=== PATIENT | male | born 1965 | race Caucasian/White ===

== ENCOUNTER 2017-06-10 20:10 | Observation (INO) | payer BC, OTHER ==
[2017-06-10] MEDS ORDERED: Nitroglycerin 2% Oint 1 GM UD Packet TOP ONE (20:18)
--- NOTE | 2017-06-10 20:28 | EDM.PDOC ---
ED HPI GENERAL MEDICAL PROBLEM - General Chief Complaint: Chest Pain Stated Complaint: CHEST PRESSURE Time Seen by Provider: 06/10/17 20:10 Source of Information: Reports: Patient, EMS History Limitations: Reports: No Limitations - History of Present Illness INITIAL COMMENTS - FREE TEXT/NARRATIVE: 52 YO WM presents to ER complaining of substernal chest pain on and off x 1 week. Pt reports he was in physical therapy today and had an elevated bp- 200/ 100's. Pt reports tonight his called EMS because he continues to have chest pain. Pt reports associated shortness of breath, nausea, dizziness and diaphoresis. Pt reports pain into shoulder but also states he had left rotator cuff repair 12/2016. Duration: Week(s): (1) Location: Reports: Chest Quality: Reports: Ache Severity: Mild Improves with: Reports: None Worsens with: Reports: None Associated Symptoms: Reports: Chest Pain, Diaphoresis, Nausea/Vomiting, Shortness of Breath. Denies: Cough, Fever/Chills Treatments MAIL ORDER BILLER: Reports: Aspirin, Nitroglycerin - Related Data Allergies Allergy/AdvReac Type Severity Reaction Status Date / Time bee venom protein (honey bee) Allergy Anaphylactic Verified 06/10/17 20:18 Shock Home Meds: Home Meds Allopurinol [Zyloprim] 100 mg PO DAILY 06/10/17 [History] Cefuroxime Axetil [Cefuroxime] 250 mg PO BID 06/10/17 [History] Escitalopram Oxalate [Escitalopram Oxalate] 20 mg PO DAILY 06/10/17 [History] Losartan [Cozaar] 100 mg PO DAILY 06/10/17 [History] Metoprolol Succinate [Metoprolol Succinate] 50 mg PO DAILY 06/10/17 [History] ED ROS GENERAL - Review of Systems Review Of Systems: See Below Constitutional: Reports: No Symptoms HEENT: Reports: No Symptoms Respiratory: Reports: Shortness of Breath Cardiovascular: Reports: Chest Pain, Blood Pressure Problem, Lightheadedness Endocrine: Reports: No Symptoms GI/Abdominal: Reports: Nausea : Reports: No Symptoms Musculoskeletal: Reports: No Symptoms Skin: Reports: No Symptoms Neurological: Reports: No Symptoms Psychiatric: Reports: No Symptoms Hematologic/Lymphatic: Reports: No Symptoms Immunologic: Reports: No Symptoms ED EXAM, GENERAL - Physical Exam Exam: See Below Exam Limited By: No Limitations General Appearance: Alert, WD/WN, No Apparent Distress Nose: Normal Inspection, Normal Mucosa, No Blood Throat/Mouth: Normal Inspection, Normal Lips, Normal Teeth, Normal Gums, Normal Oropharynx, Normal Voice, No Airway Compromise Head: Atraumatic, Normocephalic Neck: Normal Inspection, Supple, Non-Tender, Full Range of Motion Respiratory/Chest: No Respiratory Distress, Lungs Clear, Normal Breath Sounds, No Accessory Muscle Use, Chest Non-Tender Cardiovascular: Normal Peripheral Pulses, Regular Rate, Rhythm, No Edema, No Gallop, No JVD, No Murmur, No Rub GI/Abdominal: Normal Bowel Sounds, Soft, Non-Tender, No Organomegaly, No Distention, No Abnormal Bruit, No Mass Back Exam: Normal Inspection, Full Range of Motion, NT Extremities: Normal Inspection, Normal Range of Motion, Non-Tender, Normal Capillary Refill, No Pedal Edema Neurological: Alert, Oriented, CN II-XII Intact, Normal Cognition, Normal Gait, Normal Reflexes, No Motor/Sensory Deficits Psychiatric: Normal Affect, Normal Mood Skin Exam: Warm, Dry, Intact, Normal Color, No Rash Lymphatic: No Adenopathy EKG INTERPRETATION EKG Date: 06/10/17 Time: 20:21 Rhythm: NSR Rate (Beats/Min): 67 [place]: Normal P-Wave: Present QRS: RBBB ST-T: Normal QT: Normal Comparison: NA - No Prior EKG Course - Vital Signs Last Recorded V/S: Last Vital Signs Temp 36.5 C 06/10/17 20:26 Pulse 72 06/10/17 20:41 Resp 17 06/10/17 20:41 BP 131/83 06/10/17 20:41 Pulse Ox 100 06/10/17 20:41 - Orders/Labs/Meds Orders: Active Orders 24 hr Category Date Time Status Cardiac Monitoring [RC] . DIRECTED Care 06/10/17 20:19 Ordered EKG Documentation Completion [RC] ASDIRECTED Care 06/10/17 20:19 Ordered Oxygen Therapy Adult [Oxygen Therapy, ED] [RC] Care 06/10/17 20:19 Ordered ASDIRECTED Chest 1V Frontal [CR] Stat Exams 06/10/17 20:18 Ordered EKG 12 Lead [EK] Routine Ther 06/10/17 20:18 Ordered Labs: Laboratory Tests 01/17/18 01/17/18 01/17/18 Range/Units 20:28 20:28 20:28 WBC 7.5 (5.0-10.0) 10^3/uL RBC 4.86 (4.50-6.00) 10^6/uL Hgb 13.6 (13.0-17.0) g/dL Hct 43.7 (40.0-52.0) % MCV 89.9 (82.0-92.0) fL MCH 28.0 (27.0-31.0) pg MCHC 31.2 L (32.0-36.0) g/dL RDW 12.9 (11.5-14.5) % Plt Count 323 H (150-300) 10^3/uL MPV 7.4 (7.4-10.4) fL Neut % (Auto) 59.7 (50.0-70.0) % Lymph % (Auto) 31.1 (20.0-40.0) % Giles % (Auto) 7.3 (2.0-8.0) % Eos % (Auto) 1.9 (1.0-3.0) % Baso % (Auto) 0.0 (0.0-1.0) % Neut # (Auto) 4.6 (2.5-7.0) 10^3/uL Lymph # (Auto) 2.3 (1.0-4.0) 10^3/uL Giles # (Auto) 0.5 (0.1-0.8) 10^3/uL Eos # (Auto) 0.1 (0.1-0.3) 10^3/uL Baso # (Auto) 0.0 (0.0-0.1) 10^3/uL PT 9.5 (8.9-11.4) SEC INR 0.9 (0.9-1.1) APTT 23.6 (20.8-31.2) SEC Sodium 134 L (136-145) mmol/L Potassium 4.7 (3.3-5.3) mmol/L Chloride 99 (98-115) mmol/L Carbon Dioxide 22.9 (21.0-32.0) mmol/L BUN 13 (6-25) mg/dL Creatinine 0.91 (0.51-1.17) mg/dL Est Cr Clr Drug Dosing 101.14 mL/min Estimated GFR (MDRD) > 60 mL/min Glucose 131 H (70-110) mg/dL Calcium 8.7 (8.7-10.3) mg/dL Total Bilirubin 0.2 (0.2-1.0) mg/dL AST 31 (15-37) U/L ALT 49 (12-78) U/L Alkaline Phosphatase 102 (46-116) IU/L Creatine Kinase 52 (26-276) U/L CK-MB (CK-2) < 0.50 (0.00-4.30) ng/mL Troponin I < 0.04 (0.00-0.070) ng/mL Total Protein 7.2 (6.4-8.2) g/dL Albumin 3.55 (3.00-4.80) g/dL Meds: Medications Discontinued Medications Generic Name Dose Route Start Last Admin Trade Name Freq PRN Reason Stop Dose Admin Nitroglycerin 1 gm 06/10/17 20:18 06/10/17 20:40 Nitro-Bid 2% TOP 06/10/17 20:19 1 gm ONETIME ONE Administration - Radiology Interpretation Free Text/Narrative:: CXR- NAD Departure - Departure Time of Disposition: 21:21 Disposition: Refer to Observation Condition: Fair Clinical Impression: Chest pain Qualifiers: Chest pain type: unspecified Qualified Code(s): R07.9 - Chest pain, unspecified - My Orders Last 24 Hours: My Active Orders 06/10/17 20:18 Chest 1V Frontal [CR] Stat EKG 12 Lead [EK] Routine 06/10/17 20:19 Cardiac Monitoring [RC] . DIRECTED EKG Documentation Completion [RC] ASDIRECTED Oxygen Therapy Adult [Oxygen Therapy, ED] [RC] ASDIRECTED - Assessment/Plan Last 24 Hours: My Active Orders 06/10/17 20:18 Chest 1V Frontal [CR] Stat EKG 12 Lead [EK] Routine 06/10/17 20:19 Cardiac Monitoring [RC] . DIRECTED EKG Documentation Completion [RC] ASDIRECTED Oxygen Therapy Adult [Oxygen Therapy, ED] [RC] ASDIRECTED Assessment:: 1. Chest Pain Plan: 1. admit to Dr Rubio- 23 hour obs 2. trop I Q6 x 3 3. nitro/asa/oxygen/supportive care
[2017-06-10 21:04] LABS: CHLORIDE,CL 99 mmol/L (98-115); SODIUM,NA 134 mmol/L (136-145)
[2017-06-10] MEDS ORDERED: Morphine 2 MG/ML Syringe IVPUSH PRN (21:17)
[2017-06-10] MEDS ORDERED: Sodium Chloride 0.9% 5 ML Syringe FLUSH PRN (21:17)
[2017-06-10] MEDS: Famotidine 20 MG Tab PO SCH (22:09)
[2017-06-10] MEDS: Ibuprofen 400 MG Tab PO PRN (22:09)
[2017-06-11] MEDS: Nitroglycerin 2% Oint 1 GM UD Packet TOP SCH ×2 (04:11→08:12)
[2017-06-11] MEDS: Escitalopram 10 MG Tab PO SCH (08:04)
[2017-06-11] MEDS: Famotidine 20 MG Tab PO SCH ×2 (08:04→20:45)
[2017-06-11] MEDS: Losartan 50 MG Tab PO SCH (08:05)
[2017-06-11] MEDS: Allopurinol 100 MG Tab PO SCH (08:05)
[2017-06-11] MEDS: Metoprolol Succinate 50 MG Tab.ER PO SCH (08:05)
[2017-06-11] MEDS: Ibuprofen 400 MG Tab PO PRN (08:08)
[2017-06-11] MEDS ORDERED: Nitroglycerin 0.4 MG Tab.SL SL PRN (08:32)
[2017-06-11] MEDS ORDERED: EPINEPHrine 1:10,000 1 MG/10 ML Syringe IVPUSH PRN (08:32)
[2017-06-11] MEDS ORDERED: Lidocaine 2% 100 MG/5 ML Syringe IVPUSH PRN (08:32)
[2017-06-11] MEDS ORDERED: Atropine 0.1 MG/ML 10 ML Syringe IVPUSH PRN (08:32)
[2017-06-11 08:34] LABS: CHLORIDE,CL 104 mmol/L (98-115); SODIUM,NA 140 mmol/L (136-145)
--- NOTE | 2017-06-11 09:40 | PCM.HP ---
H&P History of Present Illness - General Date of Service: 06/11/17 Source of Information: Patient, Old Records, RN History Limitations: Reports: No Limitations - History of Present Illness Initial Comments - Free Text/Narative: This 52 -year-old obese gentleman was admitted through the ED last night into observation due to chest pain and rule out HI. although the patient has stated he did have substernal chest pain transiently for a week it was when he was in PT yesterday and they noticed elevation of blood pressure. EPIC/EMR records indicate high BPs over the past week as high as 178/110 however yesterday he stated his blood pressure was 168/122 came down slightly to 148/102. ambulance was notified when he started having chest pains at home while watching TV. He described his chest pain 02/01 substernal non-radiating felt like someone was "sitting on my chest" with accompanying nausea, shortness of breath and diaphoresis with worsening of headaches that he had had for the past few days. He stated he was given nitroglycerin in the ambulance it did relieve his pain within 5 minutes down to a 6/10. he's been having ongoing pain in his left shoulder after he is status post rotator cuff repair 12/2016. He is due for an MRI today at [facility] routinely. he also had routine appointments tomorrow with [facility] to regulate blood pressure medicine. he has been on antibiotics due for URI. Headache Pain Score (Numeric/FACES): 5 - Related Data Allergies/Adverse Reactions: Allergies Allergy/AdvReac Type Severity Reaction Status Date / Time bee venom protein (honey bee) Allergy Anaphylactic Verified 06/11/17 04:24 Shock Home Medications: Home Meds Allopurinol [Zyloprim] 100 mg PO DAILY 06/10/17 [History] Cefuroxime Axetil [Cefuroxime] 250 mg PO BID 06/10/17 [History] Escitalopram Oxalate [Escitalopram Oxalate] 20 mg PO DAILY 06/10/17 [History] Losartan [Cozaar] 100 mg PO DAILY 06/10/17 [History] Metoprolol Succinate [Metoprolol Succinate] 50 mg PO DAILY 06/10/17 [History] Escitalopram Oxalate [Escitalopram Oxalate] 20 mg PO DAILY 06/11/17 [History] Hydrochlorothiazide [Hydrochlorothiazide] 12.5 mg PO DAILY 06/11/17 [History] Ibuprofen 800 mg PO TID PRN 06/11/17 [History] atorvaSTATin Calcium [Atorvastatin Calcium] 10 mg PO DAILY 06/11/17 [History] Past Medical History HEENT History: Reports: Other (See Below) Other HEENT History: glasses Cardiovascular History: Reports: High Cholesterol, Hypertension Musculoskeletal History: Reports: Arthritis, Other (See Below) Other Musculoskeletal History: L shoulder Neurological History: Reports: None Psychiatric History: Reports: Anxiety, Depression, Mood Swings, Panic Attack - Infectious Disease History Infectious Disease History: Reports: None - Past Surgical History Cardiovascular Surgical History: Reports: None GI Surgical History: Reports: Bariatric Procedure, Colonoscopy, Hernia, Abdominal, Other (See Below) Other GI Surgeries/Procedures: gastric bypass 2011 Musculoskeletal Surgical History: Reports: Other (See Below) Other Musculoskeletal Surgeries/Procedures:: L rotator cuff repaid 01/22/2017 laparoscopic. neck surgery for C5 and C 6 with plate and 2 screws Social & Family History - Family History HEENT: Reports: None Cardiac: Reports: Hypertension, HI (father HI at age 58, he also had hypertension) Other Cardiac Family History: mother also with hypertension, diabetes, macular degeneration along with cataract Respiratory: Reports: None GI: Reports: None : Reports: None OBGYN: Reports: None Musculoskeletal: Reports: None Neurological: Reports: None Psychiatric: Reports: None Endocrine/Metabolic: Reports: None Hematologic: Reports: None Immunologic: Reports: None Dermatologic: Reports: None Oncologic: Reports: None - Tobacco Use Smoking Status *Q: Never Smoker - Caffeine Use Caffeine Use: Reports: Coffee, Soda - Alcohol Use Days Per Week of Alcohol Use: 6 Number of Drinks Per Day: 5 Total Drinks Per Week: 30 Date of Last Drink: 06/10/17 Time of Last Drink: 18:00 - Recreational Drug Use Recreational Drug Use: No H&P Review of Systems - Review of Systems: Review Of Systems: See Below General: Reports: Diaphoresis. Denies: Fever, Chills, Night Sweats HEENT: Reports: No Symptoms Pulmonary: Denies: Shortness of Breath, Pleuritic Chest Pain, Cough, Sputum Cardiovascular: Reports: Blood Pressure Problem. Denies: Chest Pain, Palpitations, Dyspnea on Exertion, Orthopnea, PND, Edema Gastrointestinal: Reports: Nausea Genitourinary: Reports: No Symptoms Musculoskeletal: Reports: Shoulder Pain Skin: Reports: No Symptoms Psychiatric: Reports: Depression, Anxiety Neurological: Reports: No Symptoms Hematologic/Lymphatic: Reports: No Symptoms Immunologic: Reports: No Symptoms Exam - Exam Exam: See Below - Vital Signs Vital Signs: Last Vital Signs Temp 97.8 F 06/11/17 06:35 Pulse 73 06/11/17 08:05 Resp 18 06/11/17 06:35 BP 140/89 06/11/17 08:05 Pulse Ox 97 06/11/17 08:20 Weight: 278 lb - Exam Quality Assessment: No: Supplemental Oxygen General: Alert, Oriented, Cooperative HEENT: Hearing Intact, Mucosa Moist & Griffin, Normal Nasal Septum, Posterior Pharynx Clear, Pupils Equal Neck: Supple, Trachea Midline, 2 Lungs: Clear to Auscultation, Normal Respiratory Effort Cardiovascular: Regular Rate, Regular Rhythm, Normal S1, Normal S2. No: Gallop/ S3, Gallop/S4 GI/Abdominal Exam: Normal Bowel Sounds, Soft, Non-Tender, No Organomegaly, No Distention, No Abnormal Bruit, No Mass, Pelvis Stable (Male) Exam: Deferred Rectal (Males) Exam: Deferred Back Exam: No: CVA Tenderness (L), CVA Tenderness (R) Peripheral Pulses: 2+: Carotid (L) (negative bruit), Carotid (R) (negative bruit ), Radial (L), Radial (R) Skin: Moist, Other (slightly diaphoretic) Neurological: Cranial Nerves Intact, Normal Speech Neuro Extensive - Mental Status: Alert, Oriented x3, Normal Mood/Affect, Normal Cognition Neuro Extensive - Motor, Sensory, Reflexes: CN II-XII Intact, Normal Gait, Normal Reflexes Psychiatric: Alert, Normal Affect, Normal Mood - Patient Data Lab Results Last 24 hrs: Laboratory Results - last 24 hr 06/11/17 06/11/17 Range/Units 07:35 07:35 WBC 5.4 (5.0-10.0) 10^3/uL RBC 4.77 (4.50-6.00) 10^6/uL Hgb 13.7 (13.0-17.0) g/dL Hct 40.9 (40.0-52.0) % MCV 85.7 (82.0-92.0) fL MCH 28.6 (27.0-31.0) pg MCHC 33.4 (32.0-36.0) g/dL RDW 12.9 (11.5-14.5) % Plt Count 277 (150-300) 10^3/uL MPV 6.5 L (7.4-10.4) fL Neut % (Auto) 56.0 (50.0-70.0) % Lymph % (Auto) 28.8 (20.0-40.0) % Ward % (Auto) 10.6 H (2.0-8.0) % Eos % (Auto) 1.6 (1.0-3.0) % Baso % (Auto) 3.0 H (0.0-1.0) % Neut # (Auto) 2.9 (2.5-7.0) 10^3/uL Lymph # (Auto) 1.6 (1.0-4.0) 10^3/uL Ward # (Auto) 0.6 (0.1-0.8) 10^3/uL Eos # (Auto) 0.1 (0.1-0.3) 10^3/uL Baso # (Auto) 0.2 H (0.0-0.1) 10^3/uL Sodium 140 (136-145) mmol/L Potassium 4.4 (3.3-5.3) mmol/L Chloride 104 (98-115) mmol/L Carbon Dioxide 22.6 (21.0-32.0) mmol/L BUN 10 (6-25) mg/dL Creatinine 0.93 (0.51-1.17) mg/dL Est Cr Clr Drug Dosing 98.96 mL/min Estimated GFR (MDRD) > 60 mL/min Glucose 101 (70-110) mg/dL Hemoglobin A1c 5.8 H (4.3-5.7) % Calcium 8.9 (8.7-10.3) mg/dL Magnesium 1.8 (1.8-2.4) mg/dL Troponin I < 0.04 (0.00-0.070) ng/mL Result Diagrams: 06/11/17 07:35 06/11/17 07:35 EKG INTERPRETATION Rhythm: NSR QRS: RBBB Comparison: No Change *Q Meaningful Use (ADM) - VTE *Q VTE Criteria *Q: - Stroke *Q Stroke Criteria *Q: - AMI *Q AMI Criteria *Q: Problem List Initiated/Reviewed/Updated: Yes Orders Last 24hrs: Active Orders 24 hr Category Date Time Status Allopurinol [Zyloprim] Med 06/11/17 09:00 Active 100 mg PO DAILY Atropine [Atropine 0.1 MG/ML] Med 06/11/17 08:32 Active 0 mg IVPUSH ASDIRECTED PRN EPINEPHrine [EPINEPHrine 1:10,000] Med 06/11/17 08:32 Active 1 mg IVPUSH ASDIRECTED PRN Escitalopram [Lexapro] Med 06/11/17 09:00 Active 20 mg PO DAILY Famotidine [Pepcid] Med 06/10/17 22:00 Active 20 mg PO BID Ibuprofen [Motrin] Med 06/10/17 21:57 Active 800 mg PO Q8H PRN Lidocaine 2% [Xylocaine 2%] Med 06/11/17 08:32 Active 0 mg IVPUSH ASDIRECTED PRN Losartan [Cozaar] Med 06/11/17 09:00 Active 100 mg PO DAILY Metoprolol Succinate [Toprol XL] Med 06/11/17 09:00 Active 50 mg PO DAILY Nitroglycerin [Nitro-Bid 2%] Med 06/11/17 03:00 Active 1 gm TOP Q6H Nitroglycerin [Nitrostat] Med 06/11/17 08:32 Active 0.4 mg SL ASDIRECTED PRN Medication Orders Allopurinol (Zyloprim) 100 mg PO DAILY [facility] Last Admin: 06/11/17 08:05 Dose: 100 mg Atropine Sulfate (Atropine 0.1 Mg/Ml) 0 mg IVPUSH ASDIRECTED PRN PRN Reason: Heart Epinephrine HCl (Epinephrine 1:10,000) 1 mg IVPUSH ASDIRECTED PRN PRN Reason: Heart Escitalopram Oxalate (Lexapro) 20 mg PO DAILY [facility] Last Admin: 06/11/17 08:04 Dose: 20 mg Famotidine (Pepcid) 20 mg PO BID [facility] Last Admin: 06/11/17 08:04 Dose: 20 mg Admin: 06/10/17 22:09 Dose: 20 mg Ibuprofen (Motrin) 800 mg PO Q8H PRN PRN Reason: Pain Last Admin: 06/11/17 08:08 Dose: 800 mg Admin: 06/10/17 22:09 Dose: 800 mg Lidocaine HCl (Xylocaine 2%) 0 mg IVPUSH ASDIRECTED PRN PRN Reason: Heart Losartan Potassium (Cozaar) 100 mg PO DAILY [facility] Last Admin: 06/11/17 08:05 Dose: 100 mg Metoprolol Succinate (Toprol Xl) 50 mg PO DAILY [facility] Last Admin: 06/11/17 08:05 Dose: 50 mg Morphine Sulfate (Morphine) 2 mg IVPUSH Q2H PRN PRN Reason: Pain (severe 7-10) Nitroglycerin (Nitro-Bid 2%) 1 gm TOP Q6H [facility] Last Admin: 06/11/17 08:12 Dose: Not Given Admin: 06/11/17 04:11 Dose: Nitroglycerin (Nitrostat) 0.4 mg SL ASDIRECTED PRN PRN Reason: Heart Sodium Chloride (Syrex Flush) 5 ml FLUSH Q8HR PRN PRN Reason: Keep Vein Open Assessment/Plan Comment:: HISTORY OF PRESENT ILLNESS This 52 -year-old obese gentleman was admitted through the ED last night into observation due to chest pain and rule out HI. although the patient has stated he did have substernal chest pain transiently for a week it was when he was in PT yesterday and they noticed elevation of blood pressure. EPIC/EMR records indicate high BPs over the past week as high as 178/110 however yesterday he stated his blood pressure was 168/122 came down slightly to 148/102. ambulance was notified when he started having chest pains at home while watching TV. He described his chest pain 9/10 substernal non-radiating felt like someone was "sitting on my chest" with accompanying nausea, shortness of breath and diaphoresis with worsening of headaches that he had had for the past few days. He stated he was given nitroglycerin in the ambulance it did relieve his pain within 5 minutes down to a 6/10. he's been having ongoing pain in his left shoulder after he is status post rotator cuff repair 12/2016. He is due for an MRI today at [facility] routinely. he also had routine appointments tomorrow with [place] provider to regulate blood pressure medicine. he has been on antibiotics due for URI. Cardiolite stress test November/2012, No significant perfusion abnormality. No evidence of ischemia. LVEF of 51% Mild left ventricular chamber dilatation. Pertinent ED workup included. EKG, NSR with right BBB (no change from previous EKG December 2016) Chest x-ray, no acute process, however cardiomegaly Negative troponin Cardiac risk factors Obesity Sedentary HTN/HLD Fam Hx father HI age 58 Stress Primary impression Angina, typical vs atypical, d/t to substernal chest discomfort, with characteristics quality/duration, provoked by stress and relieved somewhat by NTG. due to his high stress levels could be Prinzmetals. troponin normal. continue telemetry, will ambulate on halls today. Pharmacy consultation. Remove nitroglycerin. ASA. Pretest probability of CAD--intermediate HTN; wide ranges, pharmacological consultation on medication compliance. continue with ARB/BB/HCTZ CODE STATUS, full code Secondary impression HLD, on statin therapy, recent lipids drawn, however Cardiovascular risk assessment 10-year ACC/AHA--3% Obesity, BMI 37, morbid. Hx gastric bypass 10 years ago. modifiable risk factor. Discussed with patient regarding strategy Hx Gout, allopurinol maintenance, frequent manifestations Depression/anxiety, with current significant life stressors, likely contributable, on Lexapro. MSK; lumbar DDD, lumbar stenosis, spinal stenosis rotator cuff, WC case, due to observation status patient may be able to receive previously scheduled MRI shoulder today. Overall plan, discharge planning/disposition, continue in observation telemetry. Ambulate aggressively on nursing floor today. monitor BP, telemetry, Ongoing education regarding modifiable risk factor reduction. May be able to get MRI of shoulder while in observation, anticipate discharge tomorrow however patient will undergo stress testing.
[2017-06-11] MEDS ORDERED: Ibuprofen 200 MG Tab PO PRN ×2 (10:21→16:00)
[2017-06-11] MEDS: atorvaSTATin 10 MG Tab PO SCH (10:53)
[2017-06-11] MEDS ORDERED: Hydrochlorothiazide 25 MG Tab PO SCH (11:00)
[2017-06-11] MEDS ORDERED: Hydrochlorothiazide 12.5 MG Cap PO SCH (13:38)
[2017-06-12] MEDS: Allopurinol 100 MG Tab PO SCH (08:17)
[2017-06-12] MEDS: Losartan 50 MG Tab PO SCH (08:17)
[2017-06-12] MEDS: atorvaSTATin 10 MG Tab PO SCH (08:17)
[2017-06-12] MEDS: Metoprolol Succinate 50 MG Tab.ER PO SCH (08:17)
[2017-06-12] MEDS: Famotidine 20 MG Tab PO SCH (08:17)
[2017-06-12] MEDS: Escitalopram 10 MG Tab PO SCH (08:18)
--- NOTE | 2017-06-13 02:12 | DISCH ---
FINAL DIAGNOSES: 1. Angina, likely Prinzmetal's angina. 2. Hypertension. 3. Obesity. 4. Hyperlipidemia. 5. History of gout. 6. Depression and anxiety. HISTORY: A 52-year-old gentleman was admitted to the ED into observation due to chest pain and rule out myocardial infarction, although the patient stated he did have substernal chest pain transiently for about a week. It was when he was in PT the day prior to admission when he noticed that he had significant elevation of his blood pressure. Records indicated he has high as 178/110 a few days prior to this. It was slightly improved in PT of 168/122 and then came down to 148/102. However, it was at night when he was sitting watching TV at home when he started having chest pain 9/10, substernal, nonradiating, felt like someone was "sitting on his chest." He did have some accompany nausea, some shortness of breath, diaphoresis, worsening headache that he has had for the past few days. He does contribute his headache to excessive caffeine and Mountain Dew. He was given nitroglycerin in the ambulance. It did relieve his pain from a 9 down to a 6/10 almost immediately. He does have ongoing left shoulder pathology and pain due to status post rotator cuff repair in 12/2016. He is due for an MRI in about a week at [facility]. Cardiac stress test in 11/2012, showed no significant perfusion abnormality. No evidence of ischemia. Left ventricular ejection fraction was 51% which was normal. He did have some mild left ventricular chamber dilatation. Next, per the ED workup included EKGs, normal sinus rhythm with right BBB. No change from previous EKG of 2016. Chest x-ray on admission showed no acute process other than some cardiomegaly. Negative troponins. The patient does have significant risk factors including obesity, sedentary, hyperlipidemia, hypertension. Family history with his dad of an ID at age 58 and stress. HOSPITAL COURSE: Hospital course went well. His blood pressure was normalized. He did have some lows and some mild borderline highs, however, that was due to ambulatory around the hospital. We did keep him on telemetry. He had no aberrancy. He had normal sinus rhythm. He did not have any chest pain either reproducible or nonreproducible while in the hospital. No shortness of breath. He slept well. His headache did go away. LABORATORY DATA: White count on admission and discharge was normal. No hematological concerns. INR 0.9. Sodium 140, potassium 4.4. BUN, creatinine, calcium, magnesium, AST, ALT, alkaline phosphatase, CK, troponins were all normal. We trended his troponin and CK they were normal. PHYSICAL EXAM ON DISCHARGE: VITAL SIGNS: Temperature 97.9, heart rate 64 and regular, blood pressure 118/72, O2 sats 97% on room air, respiratory rate 16. LUNGS: Clear to auscultation. CV: Regular rate. PMI second intercostal space, midclavicular line. S1 and S2 are normal. No pedal edema. Negative for any carotid bruit. MEDICATIONS: Aspirin 81 mg enteric-coated (newly added), the patient can continue on all other home medications; however, discontinue ibuprofen, place him on Aleve for his shoulder pain. Nitroglycerin 0.4 mg sublingual as directed as needed for chest pain (newly added). DISPOSITION: The patient will be discharged from observation. He will follow up with myself at [facility] next week. He is to report any chest pain immediately. Recommendations that follow up. Schedule the patient for Cardiolite stress test. The patient was given DASH diet upon discharge. Long education regarding reducing modifiable risk factors. /[id number]
== END 2017-06-12 10:50 | disposition home or self-care (01) ==
LOC: KA.ED 20:10 → KA.MS 21:17
PROVIDERS: ADMIT Physician Assistant Medical; ATTEND Family Medicine
DX: I20.9 Angina pectoris, unspecified (principal); I10 Essential (primary) hypertension; E78.5 Hyperlipidemia, unspecified; M10.9 Gout, unspecified; F32.9 Major depressive disorder, single episode, unspecified; F41.9 Anxiety disorder, unspecified; M25.512 Pain in left shoulder; E78.00 Pure hypercholesterolemia, unspecified; M19.90 Unspecified osteoarthritis, unspecified site; F41.0 Panic disorder [episodic paroxysmal anxiety]; F34.89 Other specified persistent mood disorders; M51.36 Other intervertebral disc degeneration, lumbar region; M48.061 Spinal stenosis, lumbar region without neurogenic claudication; E66.01 Morbid (severe) obesity due to excess calories; Z68.37 Body mass index [BMI] 37.0-37.9, adult; Z79.82 Long term (current) use of aspirin; Z79.899 Other long term (current) drug therapy; Z91.030 Bee allergy status; Z83.3 Family history of diabetes mellitus; Z82.49 Family history of ischemic heart disease and other diseases of the circulatory system; Z98.84 Bariatric surgery status; Z98.890 Other specified postprocedural states
CPT/HCPCS: 36415; 71045; 80048; 80053; 82550; 82553; 83036; 83735; 84484; 85025; 85610; 85730; 93005; 99285; A9270; G0378

== ENCOUNTER 2018-08-09 22:08 | Emergency (ER) | payer BC ==
--- NOTE | 2018-08-09 22:47 | EDM.PDOC ---
ED HPI GENERAL MEDICAL PROBLEM - General Chief Complaint: Lower Extremity Injury/Pain Stated Complaint: s/p fall Time Seen by Provider: 08/09/18 22:39 Source of Information: Reports: Patient, EMS History Limitations: Reports: No Limitations - History of Present Illness INITIAL COMMENTS - FREE TEXT/NARRATIVE: 53 YO WM presents to ER after slip and fall outside while taking out trush. Pt landed on his right hip and complains of localized right hip pain. Pt denies any head or neck injury from fall. Pt denies any loss of consciousness. Pt was able to stand with assistance and was able to get into the house with his sons help. Pt denies any back pain, chest pain, shortness of breath or dizziness. Pt is alert and oriented x 4 with GCS-15. Onset: Today Onset Time: 20:30 Location: Reports: Lower Extremity, Right Quality: Reports: Ache Severity: Moderate Improves with: Reports: Rest Worsens with: Reports: Movement Associated Symptoms: Reports: No Other Symptoms - Related Data Allergies Allergy/AdvReac Type Severity Reaction Status Date / Time bee venom protein (honey bee) Allergy Anaphylactic Verified 08/09/18 22:38 Shock codeine Allergy Anxiety Verified 08/09/18 22:38 Home Meds: Home Meds Allopurinol [Zyloprim] 100 mg PO DAILY 06/10/17 [History] Losartan [Cozaar] 100 mg PO DAILY 06/10/17 [History] Metoprolol Succinate 50 mg PO DAILY 06/10/17 [History] Escitalopram Oxalate 20 mg PO DAILY 06/11/17 [History] atorvaSTATin Calcium [Atorvastatin Calcium] 10 mg PO DAILY 06/11/17 [History] hydroCHLOROthiazide [Hydrochlorothiazide] 25 mg PO DAILY 06/11/17 [History] Aspirin [Halfprin] 81 mg PO DAILY #90 tab.ec 06/12/17 [Rx] miSOPROStol [Cytotec] 25 mg PO BID 01/18/18 [History] Hydrocodone/Acetaminophen [Hydrocodon-Acetaminophn 10-325] 1 each PO Q6HR PRN # 10 tablet 08/09/18 [Rx] Ibuprofen [Motrin] 800 mg PO TID #15 tablet 08/09/18 [Rx] Past Medical History HEENT History: Reports: Other (See Below) Other HEENT History: glasses Cardiovascular History: Reports: High Cholesterol, Hypertension, Other (See Below) Other Cardiovascular History: Know right bundle branch block (2016) Musculoskeletal History: Reports: Arthritis, Other (See Below) Other Musculoskeletal History: L shoulder Neurological History: Reports: None Psychiatric History: Reports: Anxiety, Depression, Mood Swings, Panic Attack - Infectious Disease History Infectious Disease History: Reports: None - Past Surgical History Cardiovascular Surgical History: Reports: None GI Surgical History: Reports: Appendectomy, Bariatric Procedure, Colonoscopy, Hernia, Abdominal, Other (See Below) Other GI Surgeries/Procedures: gastric bypass 2011 Musculoskeletal Surgical History: Reports: Other (See Below) Other Musculoskeletal Surgeries/Procedures:: L rotator cuff repaid 01/22/2017 laparoscopic. neck surgery for C5 and C 6 with plate and 2 screws Social & Family History - Family History HEENT: Reports: None Cardiac: Reports: Hypertension, [place] Other Cardiac Family History: mother also with hypertension, diabetes, macular degeneration along with cataract Respiratory: Reports: None GI: Reports: None : Reports: None OBGYN: Reports: None Musculoskeletal: Reports: None Neurological: Reports: None Psychiatric: Reports: None Endocrine/Metabolic: Reports: None Hematologic: Reports: None Immunologic: Reports: None Dermatologic: Reports: None Oncologic: Reports: None - Caffeine Use Caffeine Use: Reports: Soda Other Caffeine Use: 2 diet mountain dew per day Review of Systems - Review of Systems Review Of Systems: See Below Constitutional: Reports: No Symptoms Eyes: Reports: No Symptoms Ears: Reports: No Symptoms Nose: Reports: No Symptoms Mouth/Throat: Reports: No Symptoms Respiratory: Reports: No Symptoms Cardiovascular: Reports: No Symptoms GI/Abdominal: Reports: No Symptoms Genitourinary: Reports: No Symptoms Musculoskeletal: Reports: Leg Pain. Denies: Neck Pain, Arm Pain, Back Pain Skin: Reports: No Symptoms Neurological: Reports: No Symptoms Psychiatric: Reports: No Symptoms ED EXAM, GENERAL - Physical Exam Exam: See Below Exam Limited By: No Limitations General Appearance: Alert, WD/WN, No Apparent Distress Eye Exam: Bilateral Eye: EOMI, PERRL Nose: Normal Inspection, Normal Mucosa, No Blood Throat/Mouth: Normal Inspection, Normal Lips, Normal Teeth, Normal Gums, Normal Oropharynx, Normal Voice, No Airway Compromise Head: Atraumatic, Normocephalic Neck: Normal Inspection, Supple, Non-Tender, Full Range of Motion Respiratory/Chest: No Respiratory Distress, Lungs Clear, Normal Breath Sounds, No Accessory Muscle Use, Chest Non-Tender Cardiovascular: Normal Peripheral Pulses, Regular Rate, Rhythm, No Edema, No Gallop, No JVD, No Murmur, No Rub GI/Abdominal: Normal Bowel Sounds, Soft, Non-Tender, No Organomegaly, No Distention, No Abnormal Bruit, No Mass Back Exam: Normal Inspection, Full Range of Motion, Paraspinal Tenderness. No: Vertebral Tenderness Extremities: No Pedal Edema, Normal Capillary Refill, Leg Pain (tenderness over the right greater trochanter) Neurological: Alert, Oriented, CN II-XII Intact, Normal Cognition, Normal Gait, Normal Reflexes, No Motor/Sensory Deficits Psychiatric: Normal Affect, Normal Mood Skin Exam: Warm, Dry, Intact, Normal Color, No Rash Lymphatic: No Adenopathy Course - Orders/Labs/Meds Orders: Active Orders 24 hr Category Date Time Status Hip Min 2V or 3V Rt [CR] Stat Exams 08/09/18 22:10 Ordered Lumbar Spine 1V [CR] Stat Exams 08/09/18 22:12 Ordered Pelvis 1V or 2V [CR] Stat Exams 08/09/18 22:13 Ordered Meds: Medications Discontinued Medications Generic Name Dose Route Start Last Admin Trade Name Freq PRN Reason Stop Dose Admin Ketorolac Tromethamine 30 mg 08/09/18 23:04 08/09/18 23:14 Toradol IVPUSH 08/09/18 23:05 30 mg ONETIME ONE Administration - Radiology Interpretation Free Text/Narrative:: right hip- NAD pelvis- NAD lumbar spine- NAD Departure - Departure Time of Disposition: 23:37 Disposition: Home, Self-Care 01 Condition: Good Clinical Impression: Contusion of hip, right Qualifiers: Encounter type: initial encounter Qualified Code(s): S70.01XA - Contusion of right hip, initial encounter - Discharge Information Prescriptions: Hydrocodone/Acetaminophen [Hydrocodon-Acetaminophn 10-325] 1 each PO Q6HR PRN # 10 tablet PRN Reason: Pain Ibuprofen [Motrin] 800 mg PO TID #15 tablet Instructions: Crutch Use, Adult, [id number], Hip Pain, Contusion, Easy-to- Read Forms: ED Department Discharge Additional Instructions: 1. discharge home 2. hydrocodone 10/325 #10 si PO Q6 PRN pain 3. motrin 800mg PO TID x 5 days 4. follow up with PCP for further evaluation and treatment 5. 3 days off work 6. return to ER for worsening symptoms - My Orders Last 24 Hours: My Active Orders 08/09/18 22:10 Hip Min 2V or 3V Rt [CR] Stat 08/09/18 22:12 Lumbar Spine 1V [CR] Stat 08/09/18 22:13 Pelvis 1V or 2V [CR] Stat - Assessment/Plan Last 24 Hours: My Active Orders 08/09/18 22:10 Hip Min 2V or 3V Rt [CR] Stat 08/09/18 22:12 Lumbar Spine 1V [CR] Stat 08/09/18 22:13 Pelvis 1V or 2V [CR] Stat Assessment:: 1. right hip contusion 2. slip and fall on ice Plan: 1. discharge home 2. hydrocodone 10/325 #10 si PO Q6 PRN pain 3. motrin 800mg PO TID x 5 days 4. follow up with PCP for further evaluation and treatment 5. 3 days off work 6. return to ER for worsening symptoms
[2018-08-09] MEDS ORDERED: Ketorolac 30 MG/ML SDV IVPUSH ONE (23:04)
--- NOTE | 2018-08-10 08:15 | CR ---
[id number] RAD/RAD Hip Right 2-3V EXAM: 2 VIEWS RIGHT HIP. INDICATION: FALL COMPARISON: None. DISCUSSION: No fracture, dislocation or other acute osseous abnormality. Mild degenerative changes of the right hip. IMPRESSION: 1. No acute osseous abnormalities. Willian Toscano DO 08/10/18 0814 Thank you for allowing us to participate in the care of your patient.
--- NOTE | 2018-08-10 08:20 | CR ---
[id number] RAD/RAD Lumbar Spine 1V EXAM: AP AND LATERAL LUMBAR SPINE. INDICATION: Fall. COMPARISON: No previous similar exam is available for comparison. FINDINGS: No definite fracture or subluxation is seen. There are a few mild anterior wedge deformities involving the T12 and L1 vertebral bodies which are age indeterminate. No significant retropulsion. Advanced facet arthropathy at multiple levels. Additionally there are areas of disc space narrowing and osteophyte formation. The pedicles are intact. IMPRESSION: 1. NO DEFINITE ACUTE FRACTURE OR SUBLUXATION. 2. MULTILEVEL DEGENERATIVE CHANGES DESCRIBED ABOVE. 3. AGE-INDETERMINATE ANTERIOR WEDGE DEFORMITY OF THE T12 AND L1 VERTEBRAL BODIES. Willian Toscano DO 08/10/18 0819 Thank you for allowing us to participate in the care of your patient.
== END 2018-08-09 23:45 | disposition home or self-care (01) ==
LOC: KA.ED 22:08
DX: S70.01XA Contusion of right hip, initial encounter (principal); I10 Essential (primary) hypertension; F41.9 Anxiety disorder, unspecified; F32.9 Major depressive disorder, single episode, unspecified; Z79.82 Long term (current) use of aspirin; Z79.899 Other long term (current) drug therapy; Z98.84 Bariatric surgery status; Z90.49 Acquired absence of other specified parts of digestive tract; Z88.5 Allergy status to narcotic agent; Z91.030 Bee allergy status; W01.0XXA Fall on same level from slipping, tripping and stumbling without subsequent striking against object, initial encounter
CPT/HCPCS: 72020; 73502; 96374; 99284; J1885; 72170

== ENCOUNTER 2018-12-06 11:32 | Emergency (ER) | payer BC ==
--- NOTE | 2018-12-06 11:46 | EDM.PDOC ---
ED HPI GENERAL MEDICAL PROBLEM - General Chief Complaint: Neuro Symptoms/Deficits Stated Complaint: neuro symptoms Time Seen by Provider: 12/06/18 11:32 Source of Information: Reports: Patient History Limitations: Reports: No Limitations - History of Present Illness INITIAL COMMENTS - FREE TEXT/NARRATIVE: Patient presents with stroke concern. He has weakness and a "numb" feeling on right side. This is in arm and leg. Today when he stood up he felt very numb and weak and had trouble standing and speech was slurred, lasting about a minute ; he has had these episodes with standing up several times in last 4 days but not previous. He has arm and leg weakness that started 4 days ago and has been persistent. He has never had a stroke, AL, A Fib, stents or bypasses in the past. He doesn't routinely take aspirin due to a small GI bleed since his gastric bypass in 2009. Headache Pain Score (Numeric/FACES): 9 - Related Data Allergies Allergy/AdvReac Type Severity Reaction Status Date / Time bee venom protein (honey bee) Allergy Anaphylactic Verified 12/06/18 12:09 Shock codeine Allergy Anxiety Verified 12/06/18 12:09 Home Meds: Home Meds Allopurinol [Zyloprim] 100 mg PO DAILY 06/10/17 [History] Losartan [Cozaar] 100 mg PO DAILY 06/10/17 [History] Metoprolol Succinate 50 mg PO DAILY 06/10/17 [History] Escitalopram Oxalate 20 mg PO DAILY 06/11/17 [History] atorvaSTATin Calcium [Atorvastatin Calcium] 10 mg PO DAILY 06/11/17 [History] hydroCHLOROthiazide [Hydrochlorothiazide] 25 mg PO DAILY 06/11/17 [History] ALPRAZolam [Xanax] 0.25 mg PO TID PRN 08/09/18 [History] Cholecalciferol (Vitamin D3) [Vitamin D3] 4,000 unit PO DAILY 08/09/18 [History] Multivit with Iron,Minerals [Spectravite Senior] 1 tab PO DAILY 08/09/18 [ History] Omeprazole 40 mg PO DAILY 08/09/18 [History] Cyanocobalamin (Vitamin B-12) [Vitamin B-12] 5,000 mcg SL DAILY 12/06/18 [ History] Diclofenac Sodium [Voltaren] 1 tab PO BID 12/06/18 [History] EPINEPHrine [Epipen] 0.3 mg INJECT ASDIRECTED PRN 12/06/18 [History] Hydrocodone/Acetaminophen [[place] 5-325 Tablet] 1 tab PO Q6HR PRN 12/06/18 [ History] Iron Ag,Ps/C/Fa6/B12/Zn/SA/Sto [Niferex Tablet] 1 cap PO DAILY 12/06/18 [History ] Iron Polysaccharide Complex [Poly-Iron] 150 cap PO DAILY 12/06/18 [History] Past Medical History HEENT History: Reports: Other (See Below) Other HEENT History: glasses Cardiovascular History: Reports: High Cholesterol, Hypertension, Other (See Below) Other Cardiovascular History: Know right bundle branch block (2016) Musculoskeletal History: Reports: Arthritis, Other (See Below) Other Musculoskeletal History: L shoulder Neurological History: Reports: None Psychiatric History: Reports: Anxiety, Depression, Mood Swings, Panic Attack - Infectious Disease History Infectious Disease History: Reports: None - Past Surgical History Cardiovascular Surgical History: Reports: None GI Surgical History: Reports: Appendectomy, Bariatric Procedure, Colonoscopy, Hernia, Abdominal, Other (See Below) Other GI Surgeries/Procedures: gastric bypass 2011 Musculoskeletal Surgical History: Reports: Other (See Below) Other Musculoskeletal Surgeries/Procedures:: L rotator cuff repaid 01/22/2017 laparoscopic. neck surgery for C5 and C 6 with plate and 2 screws Social & Family History - Family History HEENT: Reports: None Cardiac: Reports: Hypertension, [place] Other Cardiac Family History: mother also with hypertension, diabetes, macular degeneration along with cataract Respiratory: Reports: None GI: Reports: None : Reports: None OBGYN: Reports: None Musculoskeletal: Reports: None Neurological: Reports: None Psychiatric: Reports: None Endocrine/Metabolic: Reports: None Hematologic: Reports: None Immunologic: Reports: None Dermatologic: Reports: None Oncologic: Reports: None - Caffeine Use Caffeine Use: Reports: Coffee, Soda Other Caffeine Use: 2 diet mountain dew per day ED ROS GENERAL - Review of Systems Review Of Systems: See Below Constitutional: Reports: Weakness (right side). Denies: Fever, Chills, Malaise HEENT: Reports: Vision Change (he says he had tunnel vision when he stood up this morning) Respiratory: Denies: Shortness of Breath, Cough Cardiovascular: Denies: Chest Pain, Lightheadedness, Syncope GI/Abdominal: Denies: Abdominal Pain, Vomiting : Denies: Dysuria Musculoskeletal: Reports: Other (except chronic arthritis pain). Denies: Neck Pain, Shoulder Pain, Arm Pain, Back Pain, Hand Pain, Leg Pain, Foot Pain Skin: Denies: Cyanosis, Jaundice, Mottled, Pallor, Diaphoresis Neurological: Reports: Trouble Speaking (slurred this morning), Difficulty Walking (when he got up this morning). Denies: Confusion, Dizziness, Seizure, Syncope ED EXAM, NEURO - Physical Exam Exam: See Below Exam Limited By: No Limitations General Appearance: Alert, WD/WN, No Apparent Distress Eye Exam: Bilateral Eye: EOMI, Normal Inspection (full visual spann), PERRL Ears: Normal External Exam, Hearing Grossly Normal Nose: Normal Inspection, No Blood Throat/Mouth: Normal Inspection, Normal Lips, Normal Voice, No Airway Compromise Head Exam: Atraumatic, Normocephalic Neck: Normal Inspection, Supple, Non-Tender, Full Range of Motion Respiratory/Chest: No Respiratory Distress, Lungs Clear, Normal Breath Sounds Cardiovascular: Regular Rate, Rhythm, No Murmur GI/Abdominal: Soft, Non-Tender Neurological: Alert, Normal Mood/Affect, CN II-XII Intact, Straight Leg Raise (L ) (5/5), Straight Leg Raise (R) (4/5), Other (Exam shows slight weakness on right compared to left consistently throughout UE/LE exam including straight- leg raise, plantar/dorsiflexion, arm raise/flexion, hand tip stretcher. Approximately 4/ 5 on right compared to 5/5 on left. Patient is right hand dominant and usually a little stronger on that side. Romberg is negative.) Extremities: Normal Range of Motion, Non-Tender, No Pedal Edema, Normal Capillary Refill Psychiatric: Normal Affect, Normal Mood Skin Exam: Warm, Dry, Intact, Normal Color, No Rash Course - Vital Signs Last Recorded V/S: Last Vital Signs Temp 96.8 F 12/06/18 11:35 Pulse 61 12/06/18 12:02 Resp 15 12/06/18 12:02 BP 169/72 H 12/06/18 12:02 Pulse Ox 98 12/06/18 11:35 - Orders/Labs/Meds Orders: Active Orders 24 hr Category Date Time Status Blood Glucose Check, Bedside [RC] ONETIME Care 12/06/18 11:55 Active EKG Documentation Completion [RC] ASDIRECTED Care 12/06/18 11:40 Ordered EKG 12 Lead [EK] Routine Ther 12/06/18 11:39 Ordered Labs: Laboratory Tests 12/06/18 12/06/18 Range/Units 11:50 11:50 WBC 5.88 (5.00-10.00) 10^3/uL RBC 4.51 (4.50-6.00) 10^6/uL Hgb 11.9 L (13.0-17.0) g/dL Hct 37.3 L (40.0-52.0) % MCV 82.7 D (82.0-92.0) fL MCH 26.4 L (27.0-31.0) pg MCHC 31.9 L (32.0-36.0) g/dL RDW 17.0 H (11.5-14.5) % Plt Count 352 (150-400) 10^3/uL MPV 9.8 (7.4-10.4) fL Immature Gran % (Auto) 0.0 (0.0-5.0) % Neut % (Auto) 61.7 (50.0-70.0) % Lymph % (Auto) 25.9 (20.0-40.0) % Braxton % (Auto) 9.2 H (2.0-8.0) % Eos % (Auto) 1.7 (1.0-3.0) % Baso % (Auto) 1.5 H (0.0-1.0) % Immature Gran # (Auto) 0.00 (0.00-0.50) 10^3/uL Neut # (Auto) 3.63 (2.50-7.00) 10^3/uL Lymph # (Auto) 1.52 (1.00-4.00) 10^3/uL Braxton # (Auto) 0.54 (0.10-0.80) 10^3/uL Eos # (Auto) 0.10 (0.10-0.30) 10^3/uL Baso # (Auto) 0.09 (0.00-0.10) 10^3/uL Sodium 141 (136-145) mmol/L Potassium 4.4 (3.3-5.3) mmol/L Chloride 107 (98-115) mmol/L Carbon Dioxide 25.5 (21.0-32.0) mmol/L Anion Gap 12.9 (5-15) mmol/L BUN 17 (6-25) mg/dL Creatinine 1.28 H (0.51-1.17) mg/dL Est Cr Clr Drug Dosing 71.08 mL/min Estimated GFR (MDRD) 59 mL/min Glucose 101 H (75 - 99) mg/dL Calcium 9.2 (8.7-10.3) mg/dL Total Bilirubin 0.3 (0.2-1.0) mg/dL AST 29 (15-37) U/L ALT 58 (12-78) U/L Alkaline Phosphatase 126 H (46-116) IU/L Total Protein 7.3 (6.4-8.2) g/dL Albumin 3.58 (3.00-4.80) g/dL Meds: Medications Discontinued Medications Generic Name Dose Route Start Last Admin Trade Name Freq PRN Reason Stop Dose Admin Acetaminophen 1,000 mg 12/06/18 12:15 12/06/18 12:21 Tylenol Extra Strength PO 12/06/18 12:16 1,000 mg ONETIME ONE Administration - Re-Assessments/Exams Free Text/Narrative Re-Assessment/Exam: 12/06/18 12:35 NIHSS is 0. Head CT is negative. Radiologist recommends a CTA which we haven' t done here and would need to transfer out regardless. I have called [facility] and am waiting for call back. 12/06/18 12:41 Dr. Smith, Neurologist called back and accepted for transfer and full stroke evaluation. With the duration of symptoms he recommends only a full-strength at this time. Departure - Departure Time of Disposition: 13:17 Disposition: DC/Tfer to Acute Hospital 02 Condition: Good Clinical Impression: Stroke-like symptoms, Right sided weakness - Discharge Information Referrals: Abhinav Quevedo PA-C [Primary Care Provider] - Forms: ED Department Discharge - My Orders Last 24 Hours: My Active Orders 12/06/18 11:39 EKG 12 Lead [EK] Routine 12/06/18 11:40 EKG Documentation Completion [RC] ASDIRECTED 12/06/18 11:55 Blood Glucose Check, Bedside [RC] ONETIME - Assessment/Plan Last 24 Hours: My Active Orders 12/06/18 11:39 EKG 12 Lead [EK] Routine 12/06/18 11:40 EKG Documentation Completion [RC] ASDIRECTED 12/06/18 11:55 Blood Glucose Check, Bedside [RC] ONETIME
--- NOTE | 2018-12-06 12:04 | CT ---
[id number] CT/CT Head Stroke Protocol Exam: CT Head Stroke Protocol Clinical Data: NEUROLOGIC DEFICIT COMPARISON: CORRELATION IS MADE WITH THE EXAM OF NOVEMBER 16, 2012. FINDINGS: There is no mass or mass effect. There is no hemorrhage or hydrocephalus. There are no extra-axial fluid collections. There is no hyperdense middle cerebral artery sign. The aspect score is 10. Report was called at the time of the dictation. IMPRESSION: NEGATIVE PLAIN CT BRAIN. Torres Rivera MD 12/06/18 9163 Thank you for allowing us to participate in the care of your patient.
[2018-12-06] MEDS ORDERED: Acetaminophen 500 MG Tab PO ONE (12:15)
[2018-12-06 12:21] LABS: ANION GAP 12.9 mmol/L (5-15)
[2018-12-06] MEDS ORDERED: Aspirin 325 MG Tab.EC PO ONE (12:41)
== END 2018-12-06 13:50 ==
LOC: KA.ED 11:32
DX: R53.1 Weakness (principal); R20.0 Anesthesia of skin; I10 Essential (primary) hypertension; M19.90 Unspecified osteoarthritis, unspecified site; F41.9 Anxiety disorder, unspecified; F32.9 Major depressive disorder, single episode, unspecified; Z79.899 Other long term (current) drug therapy; Z88.5 Allergy status to narcotic agent; Z91.030 Bee allergy status; Z90.49 Acquired absence of other specified parts of digestive tract; Z98.84 Bariatric surgery status
CPT/HCPCS: 36415; 70450; 80053; 85025; 93005; 99285; A9270

== ENCOUNTER 2019-03-30 12:48 | Emergency (ER) | payer BC ==
[2019-03-30 13:29] VITALS: PULSE 70
[2019-03-30] MEDS: Lidocaine 1% with EPINEPHrine 1:100,000 20 ML MDV INJECT ONE (13:30)
[2019-03-30] MEDS: Lidocaine 1% with EPINEPHrine 1:100,000 20 ML MDV ONE (13:38)
--- NOTE | 2019-03-30 13:53 | EDM.PDOC ---
ED HPI GENERAL MEDICAL PROBLEM - General Chief Complaint: Laceration Stated Complaint: GASH ON HIS HAND Time Seen by Provider: 03/30/19 13:13 Source of Information: Reports: Patient History Limitations: Reports: No Limitations - History of Present Illness INITIAL COMMENTS - FREE TEXT/NARRATIVE: Patient presents with laceration on the back of right hand from a knife he was using to install insulation, just prior to ER arrival. He has full AROM of hand and fingers. It bled quite a bit. No other injuries. No fever. Tetanus is within the last two years. No blood thinners or immune compromise. 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) - Related Data Allergies Allergy/AdvReac Type Severity Reaction Status Date / Time bee venom protein (honey bee) Allergy Anaphylactic Verified 03/30/19 13:29 Shock codeine Allergy Anxiety Verified 03/30/19 13:29 Home Meds: Home Meds Allopurinol [Zyloprim] 100 mg PO DAILY 06/10/17 [History] Losartan [Cozaar] 100 mg PO DAILY 06/10/17 [History] Metoprolol Succinate 50 mg PO DAILY 06/10/17 [History] Escitalopram Oxalate 20 mg PO DAILY 06/11/17 [History] atorvaSTATin Calcium [Atorvastatin Calcium] 10 mg PO DAILY 06/11/17 [History] hydroCHLOROthiazide [Hydrochlorothiazide] 25 mg PO DAILY 06/11/17 [History] ALPRAZolam [Xanax] 0.25 mg PO TID PRN 08/09/18 [History] Cholecalciferol (Vitamin D3) [Vitamin D3] 4,000 unit PO DAILY 08/09/18 [History] Multivit with Iron,Minerals [Spectravite Senior] 1 tab PO DAILY 08/09/18 [ History] Omeprazole 40 mg PO DAILY 08/09/18 [History] Cyanocobalamin (Vitamin B-12) [Vitamin B-12] 5,000 mcg SL DAILY 12/06/18 [ History] Diclofenac Sodium [Voltaren] 1 tab PO BID 12/06/18 [History] EPINEPHrine [Epipen] 0.3 mg INJECT ASDIRECTED PRN 12/06/18 [History] Hydrocodone/Acetaminophen [[place] 5-325 Tablet] 1 tab PO Q6HR PRN 12/06/18 [ History] Iron Ag,Ps/C/Fa6/B12/Zn/SA/Sto [Niferex Tablet] 1 cap PO DAILY 12/06/18 [History ] Iron Polysaccharide Complex [Poly-Iron] 150 cap PO DAILY 12/06/18 [History] Terazosin HCl [Terazosin] 5 mg PO BEDTIME 12/22/18 [History] buPROPion HCl [Wellbutrin SR] 150 mg PO DAILY 12/22/18 [History] Past Medical History HEENT History: Reports: Other (See Below) Other HEENT History: glasses Cardiovascular History: Reports: High Cholesterol, Hypertension, Other (See Below) Other Cardiovascular History: Know right bundle branch block (2016) Musculoskeletal History: Reports: Arthritis, Other (See Below) Other Musculoskeletal History: L shoulder Neurological History: Reports: None Psychiatric History: Reports: Anxiety, Depression, Mood Swings, Panic Attack - Infectious Disease History Infectious Disease History: Reports: None - Past Surgical History Cardiovascular Surgical History: Reports: None GI Surgical History: Reports: Appendectomy, Bariatric Procedure, Colonoscopy, Hernia, Abdominal, Other (See Below) Other GI Surgeries/Procedures: gastric bypass 2011 Neurological Surgical History: Reports: C-Spine, Other (See Below) Other Neurological Surgeries/Procedures: metal cage in neck Musculoskeletal Surgical History: Reports: Other (See Below) Other Musculoskeletal Surgeries/Procedures:: L rotator cuff repaid 01/22/2017 laparoscopic. neck surgery for C5 and C 6 with plate and 2 screws Social & Family History - Family History Family Medical History: Noncontributory HEENT: Reports: None Cardiac: Reports: Hypertension, [place] Other Cardiac Family History: mother also with hypertension, diabetes, macular degeneration along with cataract Respiratory: Reports: None GI: Reports: None : Reports: None OBGYN: Reports: None Musculoskeletal: Reports: None Neurological: Reports: None Psychiatric: Reports: None Endocrine/Metabolic: Reports: None Hematologic: Reports: None Immunologic: Reports: None Dermatologic: Reports: None Oncologic: Reports: None - Tobacco Use Smoking Status *Q: Never Smoker Second Hand Smoke Exposure: No - Caffeine Use Caffeine Use: Reports: Soda, Tea Other Caffeine Use: 2 diet mountain dew per day - Recreational Drug Use Recreational Drug Use: No ED ROS GENERAL - Review of Systems Review Of Systems: ROS reveals no pertinent complaints other than HPI. ED EXAM, SKIN/RASH Exam: See Below Exam Limited By: No Limitations General Appearance: Alert, WD/WN, No Apparent Distress Ears: Normal External Exam, Hearing Grossly Normal Nose: Normal Inspection, No Blood Throat/Mouth: Normal Inspection, Normal Lips, Normal Voice, No Airway Compromise Head: Atraumatic, Normocephalic Neck: Other (He has a C-collar on status post cervical spine fusion recently.) Respiratory/Chest: No Respiratory Distress, Lungs Clear, Normal Breath Sounds, No Accessory Muscle Use Cardiovascular: Regular Rate, Rhythm, No Murmur GI/Abdominal: No Distention Back Exam: Full Range of Motion Extremities: Normal Range of Motion, Non-Tender, Normal Capillary Refill, Other (3 cm transverse laceration of dorsal right hand). No: Limited Range of Motion (full extension exhibited against resistance of fingers) Neurological: Alert, Oriented, Normal Cognition, No Motor/Sensory Deficits Psychiatric: Normal Affect, Normal Mood Skin: Warm, Dry, Intact, Normal Color, No Rash ED SKIN PROCEDURES - Laceration/Wound Repair Right Posterior Hand Appearance: Subcutaneous Distal NVT: Neuro & Vascular Intact, Other (partial thickness (less than 50%) injury of ring finger extensor tendon) Anesthetic Type: Local Local Anesthesia - Lidocaine (Xylocaine): 1% with EPI Local Anesthetic Volume: 2cc Skin Prep: Chlorhexidine (Hibiciens) Saline Irrigation (cc's): 60 Exploration/Debridement/Repair: Wound Explored, In a Bloodless Field, Explored to Base Closed with: Sutures Lac/Wound length In cm: 3 Suture Size: 4-0 # of Sutures: 7 Suture Type: Nylon, Interrupted, Simple Sterile Dressing Applied: Provider Tetanus Status Addressed: Yes Complications: No Progress/Comments: Estimating 25% tendon injury; this was left as it should heal completely without repair. Repair would also add further insult to the tendon and leave a lump in the tendon. Full tendon function against resistance is preserved. Course - Vital Signs Last Recorded V/S: Last Vital Signs Temp 97.2 F 03/30/19 13:05 Pulse 70 03/30/19 13:05 Resp 20 03/30/19 13:05 BP Pulse Ox 97 03/30/19 13:05 - Orders/Labs/Meds Meds: Medications Discontinued Medications Generic Name Dose Route Start Last Admin Trade Name Freq PRN Reason Stop Dose Admin Lidocaine/Epinephrine Confirm 03/30/19 13:21 03/30/19 13:38 Xylocaine 1% With Epinephrine 1:100,000 Administered 03/30/19 13:22 Not Given Dose 20 ml .ROUTE .STK-MED ONE Lidocaine/Epinephrine 3 ml 03/30/19 13:20 03/30/19 13:30 Xylocaine 1% With Epinephrine 1:100,000 INJECT 03/30/19 13:21 3 ml ONETIME ONE Administration - Re-Assessments/Exams Free Text/Narrative Re-Assessment/Exam: 03/30/19 13:59 Discussed findings and treatment plan with patient who agrees with the plan. Repair performed using sterile technique as described above. Patient tolerated the procedure well and was discharged to home in stable condition. Departure - Departure Time of Disposition: 13:48 Disposition: Home, Self-Care 01 Condition: Good Clinical Impression: Laceration of hand involving extensor tendon Qualifiers: Encounter type: initial encounter Laterality: right Qualified Code(s): S61.411A - Laceration without foreign body of right hand, initial encounter; S66.821A - Laceration of other specified muscles, fascia and tendons at wrist and hand level, right hand, initial encounter - Discharge Information Instructions: Laceration Care, Adult, [id number] Referrals: Abhinav Quevedo PA-C [Primary Care Provider] - Additional Instructions: 1. Keep wound clean and avoid submerging in water. May wash in shower and other fresh running water. 2. Recheck with your PCP [facility] if you see any sign of infection. 3. Follow up with your PCP in 10 days for suture removal.
== END 2019-03-30 14:00 | disposition home or self-care (01) ==
LOC: KA.ED 12:48
DX: S66.921A Laceration of unspecified muscle, fascia and tendon at wrist and hand level, right hand, initial encounter (principal); I10 Essential (primary) hypertension; E78.00 Pure hypercholesterolemia, unspecified; F32.9 Major depressive disorder, single episode, unspecified; F41.0 Panic disorder [episodic paroxysmal anxiety]; M19.90 Unspecified osteoarthritis, unspecified site; Z88.5 Allergy status to narcotic agent; Z91.030 Bee allergy status; Z79.899 Other long term (current) drug therapy; W26.0XXA Contact with knife, initial encounter
CPT/HCPCS: 12002; 99282-25

== ENCOUNTER 2019-07-27 18:41 | Emergency (ER) | payer BC ==
[2019-07-27] MEDS ORDERED: Dexamethasone 10 MG/ML SDV IM ONE (19:04)
--- NOTE | 2019-07-27 19:14 | EDM.PDOC ---
ED HPI GENERAL MEDICAL PROBLEM - General Chief Complaint: General Stated Complaint: numbness Time Seen by Provider: 07/27/19 18:46 Source of Information: Reports: Patient History Limitations: Reports: No Limitations - History of Present Illness INITIAL COMMENTS - FREE TEXT/NARRATIVE: Patient is a 54-year-old gentleman who presents to the emergency department this evening via private vehicle with a complaint of neck and low back pain. Patient states that he's been working the last 2 days at [employer] after being off for 6 months. 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 Patient states that he underwent cervical disc surgery this past February. Patient admits to occasionally low back pain, however has not had any cervical issues since surgery. Patient states discomfort started yesterday afternoon after working 2 full days. Has intermittent radicular pain in bilateral upper extremities and bilateral lower extremities Patient called in sick today because of discomfort. Patient denies fever, chest pain, shortness of breath, flank pain, saddle anesthesia, urinary or bowel incontinence, abdominal pain, nausea, vomiting, diarrhea, or any trauma. Onset: Gradual Onset Date: 07/26/19 Duration: Day(s): Location: Reports: Neck, Back Quality: Reports: Ache Severity: Mild Improves with: Reports: None Worsens with: Reports: Movement Context: Reports: Activity. Denies: Trauma Associated Symptoms: Reports: No Other Symptoms. 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 Headache Pain Score (Numeric/FACES): 5 - Related Data Allergies Allergy/AdvReac Type Severity Reaction Status Date / Time bee venom protein (honey bee) Allergy Anaphylactic Verified 03/30/19 13:29 Shock codeine Allergy Anxiety Verified 03/30/19 13:29 Home Meds: Home Meds Losartan [Cozaar] 100 mg PO DAILY 06/10/17 [History] allopurinoL [Zyloprim] 100 mg PO DAILY 06/10/17 [History] Escitalopram Oxalate 20 mg PO DAILY 06/11/17 [History] atorvaSTATin Calcium [Atorvastatin Calcium] 10 mg PO DAILY 06/11/17 [History] ALPRAZolam [Xanax] 0.25 mg PO TID PRN 08/09/18 [History] Cholecalciferol (Vitamin D3) [Vitamin D3] 4,000 unit PO DAILY 08/09/18 [History] Multivit with Iron,Minerals [Spectravite Senior] 1 tab PO DAILY 08/09/18 [ History] Omeprazole 40 mg PO DAILY 08/09/18 [History] Cyanocobalamin (Vitamin B-12) [Vitamin B-12] 5,000 mcg SL DAILY 12/06/18 [ History] Diclofenac Sodium [Voltaren] 75 mg PO BID 12/06/18 [History] EPINEPHrine [Epipen] 0.3 mg INJECT ASDIRECTED PRN 12/06/18 [History] Iron Polysaccharide Complex [Poly-Iron] 150 cap PO DAILY 12/06/18 [History] Terazosin HCl [Terazosin] 5 mg PO BEDTIME 12/22/18 [History] buPROPion HCl [Wellbutrin SR] 150 mg PO DAILY 12/22/18 [History] Indomethacin 50 mg PO TID PRN 03/30/19 [History] carvediloL [Carvedilol] 12.5 mg PO BID 03/30/19 [History] Past Medical History HEENT History: Reports: Other (See Below) Other HEENT History: glasses Cardiovascular History: Reports: High Cholesterol, Hypertension, Other (See Below) Other Cardiovascular History: Know right bundle branch block (2016) Musculoskeletal History: Reports: Arthritis, Other (See Below) Other Musculoskeletal History: L shoulder Neurological History: Reports: None Psychiatric History: Reports: Anxiety, Depression, Mood Swings, Panic Attack - Infectious Disease History Infectious Disease History: Reports: None - Past Surgical History Cardiovascular Surgical History: Reports: None GI Surgical History: Reports: Appendectomy, Bariatric Procedure, Colonoscopy, Hernia, Abdominal, Other (See Below) Other GI Surgeries/Procedures: gastric bypass 2011 Neurological Surgical History: Reports: C-Spine, Other (See Below) Other Neurological Surgeries/Procedures: metal cage in neck Musculoskeletal Surgical History: Reports: Other (See Below) Other Musculoskeletal Surgeries/Procedures:: L rotator cuff repaid 01/22/2017 laparoscopic. neck surgery for C5 and C 6 with plate and 2 screws Social & Family History - Family History Family Medical History: Noncontributory HEENT: Reports: None Cardiac: Reports: Hypertension, [place] Other Cardiac Family History: mother also with hypertension, diabetes, macular degeneration along with cataract Respiratory: Reports: None GI: Reports: None : Reports: None OBGYN: Reports: None Musculoskeletal: Reports: None Neurological: Reports: None Psychiatric: Reports: None Endocrine/Metabolic: Reports: None Hematologic: Reports: None Immunologic: Reports: None Dermatologic: Reports: None Oncologic: Reports: None - Tobacco Use Smoking Status *Q: Never Smoker Second Hand Smoke Exposure: No - Caffeine Use Caffeine Use: Reports: Coffee, Soda Other Caffeine Use: 2 diet mountain dew per day - Recreational Drug Use Recreational Drug Use: No ED ROS GENERAL - Review of Systems Review Of Systems: Comprehensive ROS is negative, except as noted in HPI. Constitutional: Reports: No Symptoms HEENT: Reports: No Symptoms Respiratory: Reports: No Symptoms Cardiovascular: Reports: No Symptoms Endocrine: Reports: No Symptoms GI/Abdominal: Reports: No Symptoms : Reports: No Symptoms Musculoskeletal: Reports: Neck Pain, Back Pain Skin: Reports: No Symptoms Neurological: Reports: No Symptoms Psychiatric: Reports: No Symptoms Hematologic/Lymphatic: Reports: No Symptoms Immunologic: Reports: No Symptoms ED EXAM, GENERAL - Physical Exam Exam: See Below Exam Limited By: No Limitations General Appearance: Alert, WD/WN, No Apparent Distress Throat/Mouth: Normal Inspection, Normal Oropharynx, No Airway Compromise Head: Atraumatic, Normocephalic Neck: Limited Range of Motion (Of chronic nature), Tender Lateral. No: Lymphadenopathy (L), Lymphadenopathy (R), Tender Midline Respiratory/Chest: No Respiratory Distress, Lungs Clear, Normal Breath Sounds Cardiovascular: Normal Peripheral Pulses, Regular Rate, Rhythm, No Murmur GI/Abdominal: Normal Bowel Sounds, Soft, Non-Tender, No Organomegaly, No Distention, No Abnormal Bruit, No Mass Back Exam: Normal Inspection, Paraspinal Tenderness (Lumbar). No: CVA Tenderness (L), CVA Tenderness (R) Extremities: Normal Inspection, No Pedal Edema, Other (No lower or upper extremity neurovascular or weakness noted) Neurological: Alert, Oriented, CN II-XII Intact, No Motor/Sensory Deficits. No : Abnormal Gait, Sensory/Motor Deficit Psychiatric: Normal Affect, Normal Mood Skin Exam: Warm, Dry, Intact, Normal Color, No Rash Lymphatic: No Adenopathy Course - Vital Signs Last Recorded V/S: Last Vital Signs Temp 97.5 F 07/27/19 18:49 Pulse 58 L 07/27/19 18:49 Resp 15 07/27/19 18:49 BP 146/68 H 07/27/19 18:49 Pulse Ox 98 07/27/19 18:49 - Orders/Labs/Meds Orders: Active Orders 24 hr Category Date Time Status Lumbar Spine wo Cont [CT] Stat Exams 07/27/19 19:00 Ordered Meds: Medications Discontinued Medications Generic Name Dose Route Start Last Admin Trade Name Ramos PRN Reason Stop Dose Admin Dexamethasone 8 mg 07/27/19 19:04 Dexamethasone IM 07/27/19 19:05 ONETIME ONE - Radiology Interpretation Free Text/Narrative:: CT lumbar spine without contrast shows advanced changes of lumbar spondylosis, degenerative disc disease. No evidence of acute fracture or compression deformity - Re-Assessments/Exams Free Text/Narrative Re-Assessment/Exam: 07/27/19 20:08 Patient afebrile, vital signs stable, discomfort mostly relieved following Decadron. Patient will follow-up with PCP in one to 2 days Departure - Departure Time of Disposition: 20:09 Disposition: Home, Self-Care 01 Condition: Good Clinical Impression: Radiculopathy due to lumbar intervertebral disc disorder - Discharge Information Instructions: Lumbosacral Radiculopathy, Degenerative Disk Disease Referrals: Abhinav Quevedo PA-C [Primary Care Provider] - Additional Instructions: Follow[facility]up at [facility] in 1-2 days. Take medication as directed. Return to emergency department sooner symptoms continue or worsen. Sepsis Event Note - Evaluation Sepsis Screening Result: No Definite Risk - Focused Exam Vital Signs: Vital Signs Temp Pulse Resp BP Pulse Ox 07/27/19 18:49 97.5 F 58 L 15 146/68 H 98 Date Exam was Performed: 07/27/19 Time Exam was Performed: 19:06 - My Orders Last 24 Hours: My Active Orders 07/27/19 19:00 Lumbar Spine wo Cont [CT] Stat - Assessment/Plan Last 24 Hours: My Active Orders 07/27/19 19:00 Lumbar Spine wo Cont [CT] Stat Assessment:: Radicular pain Plan: Follow-up with PCP
--- NOTE | 2019-07-27 20:03 | CT ---
[id number] CT/CT Lumbar Spine WO IV Exam: CT Lumbar Spine WO IV Indication:LEG NUMBNESS. Comparison: Radiograph from July 2018. Discussion: Spondylosis diffusely throughout the lumbar and lower thoracic spine. Findings include both degenerative disease and facet joint arthropathy. Multiple levels of severe degenerative disc disease with disc osteophyte complexes, vacuum disc phenomenon, disc osteophyte complexes, and intervertebral disc height loss. Advanced degenerative disc disease is seen at T10-11 through L2-3 as well as L5-S1. Additionally there is advanced facet joint arthropathy most prominent at L3-4 through L5-S1. Findings in varying severity of spinal canal or foraminal stenosis. Foraminal stenosis is most prominent on the left at L5-S1 where it appears severe. On the left there is moderate to severe foraminal stenosis at L2-3 and L4-5. Multiple levels of at least moderate central canal stenosis. Central canal stenosis is difficult to accurately assess on CT. If there is no contraindication, MRI lumbar spine without contrast is recommended for further evaluation. No evidence of an acute fracture or compression deformity. Urinary bladder is distended. Postsurgical change at the gastroesophageal junction from what appears to be either hernia repair or gastric bypass. Other structures in the visualized portion of the abdomen and pelvis are unremarkable. Incidentally noted are trace bilateral pleural effusions. Impression: No acute findings Advanced changes of lumbar spondylosis described in detail above with recommendations. Giorgio Lew MD 07/27/192000 Thank you for allowing us to participate in the care of your patient.
== END 2019-07-27 20:20 | disposition home or self-care (01) ==
LOC: KA.ED 18:41
DX: M51.16 Intervertebral disc disorders with radiculopathy, lumbar region (principal); I10 Essential (primary) hypertension; Z91.030 Bee allergy status; Z88.5 Allergy status to narcotic agent; Z79.899 Other long term (current) drug therapy
CPT/HCPCS: 72131; 96372; 99283-25; J1100

== ENCOUNTER 2020-02-11 18:10 | Inpatient (IN) | payer BC ==
--- NOTE | 2020-02-11 18:22 | EDM.PDOC ---
ED HPI GENERAL MEDICAL PROBLEM - General Chief Complaint: Abdominal Pain Stated Complaint: abdominal pain Time Seen by Provider: 02/11/20 18:22 Source of Information: Reports: Patient History Limitations: Reports: No Limitations - History of Present Illness INITIAL COMMENTS - FREE TEXT/NARRATIVE: Butch, 54-year-old male, presents with upper abdominal pain predominant right and epigastric region. States it radiates some towards his back. Ate Vietnamese food last night is the only thing different in the past week and stated by the time going to bed, he felt mildly irritated. Said he slept on and off throughout the night finally able to get to sleep, at which time he woke this morning with intermittent discomfort. Pain has worsened throughout the day denying any fever chills with mild nausea. 10 nauseous events with no emesis as he relates he does not typically have emesis secondary of his gastric bypass. No change in bowel or bladder today with no worsening nor palliative gain after bowel movement. No risk or covid exposures. Denies any cough, general malaise, or fatigue. Onset Date: 02/10/20 Onset Time: 20:00 Duration: Hour(s):, Colic, Getting Worse Location: Reports: Abdomen, Back Quality: Reports: Burning, Pressure, Sharp Severity: Severe Improves with: Reports: None Context: Reports: Other Associated Symptoms: Reports: No Other Symptoms Right Abdominal Pain Score (Numeric/FACES): 10 - Related Data Allergies Allergy/AdvReac Type Severity Reaction Status Date / Time bee venom protein (honey bee) Allergy Anaphylactic Verified 02/11/20 20:50 Shock codeine Allergy Anxiety Verified 02/11/20 20:50 Home Meds: Home Meds Losartan [Cozaar] 100 mg PO DAILY 06/10/17 [History] allopurinoL [Zyloprim] 300 mg PO DAILY 06/10/17 [History] Escitalopram Oxalate 20 mg PO DAILY 06/11/17 [History] atorvaSTATin Calcium [Atorvastatin Calcium] 10 mg PO DAILY 06/11/17 [History] Cholecalciferol (Vitamin D3) [Vitamin D3] 5,000 unit PO DAILY 08/09/18 [History] Omeprazole 40 mg PO DAILY 08/09/18 [History] Cyanocobalamin (Vitamin B-12) [Vitamin B-12] 5,000 mcg SL DAILY 12/06/18 [History] EPINEPHrine [Epipen] 0.3 mg INJECT ASDIRECTED PRN 12/06/18 [History] Iron Polysaccharide Complex [Poly-Iron] 150 cap PO DAILY 12/06/18 [History] Terazosin HCl [Terazosin] 5 mg PO BEDTIME 12/22/18 [History] buPROPion HCL [Wellbutrin SR] 150 mg PO DAILY 12/22/18 [History] Indomethacin 50 mg PO TID PRN 03/30/19 [History] carvediloL [Carvedilol] 12.5 mg PO BID 03/30/19 [History] Diclofenac Sodium [Voltaren] 25 mg PO BID 07/27/19 [History] Aspirin [Aspirin EC] 81 mg PO DAILY 02/11/20 [History] Baclofen 10 mg PO BID 02/11/20 [History] Colchicine 2 tab PO ASDIRECTED PRN 02/11/20 [History] Multivitamin with Minerals [Multivitamins with Minerals] 1 tab PO DAILY 02/11/20 [History] busPIRone [Buspar] 15 mg PO BEDTIME PRN 02/11/20 [History] Past Medical History HEENT History: Reports: Other (See Below) Other HEENT History: glasses Cardiovascular History: Reports: High Cholesterol, Hypertension, Other (See Below) Other Cardiovascular History: Know right bundle branch block (2016) Respiratory History: Reports: None Genitourinary History: Reports: None Musculoskeletal History: Reports: Arthritis, Other (See Below) Other Musculoskeletal History: L shoulder Neurological History: Reports: None Psychiatric History: Reports: Anxiety, Depression, Mood Swings, Panic Attack Endocrine/Metabolic History: Reports: Obesity/BMI 30+ Hematologic History: Reports: None Immunologic History: Reports: None Oncologic (Cancer) History: Reports: None Dermatologic History: Reports: None - Infectious Disease History Infectious Disease History: Reports: None - Past Surgical History Head Surgeries/Procedures: Reports: None Cardiovascular Surgical History: Reports: None GI Surgical History: Reports: Appendectomy, Bariatric Procedure, Colonoscopy, Hernia, Abdominal, Other (See Below) Other GI Surgeries/Procedures: gastric bypass 2011 Neurological Surgical History: Reports: C-Spine, Other (See Below) Other Neurological Surgeries/Procedures: metal cage in neck Musculoskeletal Surgical History: Reports: Other (See Below) Other Musculoskeletal Surgeries/Procedures:: L rotator cuff repaid 01/22/2017 laparoscopic. neck surgery for C5 and C 6 with plate and 2 screws Social & Family History - Family History Family Medical History: Noncontributory HEENT: Reports: None Cardiac: Reports: Hypertension, [place] Other Cardiac Family History: mother also with hypertension, diabetes, macular degeneration along with cataract Respiratory: Reports: None GI: Reports: None : Reports: None OBGYN: Reports: None Musculoskeletal: Reports: None Neurological: Reports: None Psychiatric: Reports: None Endocrine/Metabolic: Reports: None Hematologic: Reports: None Immunologic: Reports: None Dermatologic: Reports: None Oncologic: Reports: None - Caffeine Use Caffeine Use: Reports: Coffee, Soda Other Caffeine Use: 2 diet mountain dew per day ED ROS GENERAL - Review of Systems Review Of Systems: Comprehensive ROS is negative, except as noted in HPI. ED EXAM, GENERAL - Physical Exam Exam: See Below Free Text/Narrative:: Alert, oriented, and in mild painful distress. Is difficult for him to find a position of comfort as he is self splinting/guarding with his arm hand the right upper quadrant of the abdomen. HEENT is negative discharge or deformity. PERRLA no icterus no injection. [place] moist mucous membranes. Neck is soft supple no lymphadenopathy no JVD, no carotid bruit or nuchal rigidity appreciated. Thorax is clear mildly diminished bases with no wheezes nor crackles. Cardiac is S1 is 2 I do not appreciate any murmur. Abdomen is rotund, bowel sounds are hyperactive predominantly in the left upper, epigastric, and right upper quadrant. Bowel sounds are noted to be in the lower quadrants but not as active. No pain over the urinary bladder. There is what appears to be a ventral hernia with firmness underlying likely due to bowel distention. I do not palpate any organomegaly but is limited secondary of discomfort with deep palpation. and rectal was deferred. There is minimal edema with good motion of the lower extremities. Radial pulse correlates with apical heart rate. EKG INTERPRETATION EKG Date: 02/11/20 Time: 19:29 Rhythm: NSR [place]: LAD-Left [place] Deviation QRS: RBBB ST-T: Normal QT: Normal Comparison: No Change Course - Vital Signs Last Recorded V/S: Last Vital Signs Temp 37.3 C 02/11/20 19:40 Pulse 66 02/11/20 20:29 Resp 18 02/11/20 20:29 BP 185/95 H 02/11/20 20:29 Pulse Ox 97 09/19/20 20:29 - Orders/Labs/Meds Orders: Active Orders 24 hr Category Date Time Status EKG Documentation Completion [RC] ASDIRECTED Care 02/11/20 18:28 Active Peripheral IV Care [RC] . DIRECTED Care 02/11/20 18:28 Active Sodium Chloride 0.9% [Normal Saline] 1,000 ml Med 02/11/20 18:30 Active IV ASDIRECTED Sodium Chloride 0.9% [Saline Flush] Med 02/11/20 18:28 Active 10 ml FLUSH Q8HR PRN Peripheral IV Insertion Adult [OM.PC] Routine Oth 02/11/20 18:28 Ordered EKG 12 Lead [EK] Urgent Ther 02/11/20 18:28 Ordered Medication Orders Sodium Chloride (Normal Saline) 1,000 mls @ 150 mls/hr IV ASDIRECTED EDMOND Last Admin: 02/11/20 18:45 Dose: 150 mls/hr Documented by: ELENA Sodium Chloride (Saline Flush) 10 ml FLUSH Q8HR PRN PRN Reason: keep vein open Last Admin: 02/11/20 18:47 Dose: 10 ml Documented by: ELENA Labs: Laboratory Tests 02/11/20 02/11/20 02/11/20 Range/Units 18:30 18:30 19:24 WBC 10.20 H (5.00-10.00) 10^3/uL RBC 4.85 (4.50-6.00) 10^6/uL Hgb 14.6 D (13.0-17.0) g/dL Hct 43.0 (40.0-52.0) % MCV 88.7 D (82.0-92.0) fL MCH 30.1 (27.0-31.0) pg MCHC 34.0 (32.0-36.0) g/dL RDW 13.5 (11.5-14.5) % Plt Count 259 D (150-400) 10^3/uL MPV 10.2 (7.4-10.4) fL Immature Gran % (Auto) 0.1 (0.0-5.0) % Neut % (Auto) 80.7 H (50.0-70.0) % Lymph % (Auto) 12.1 L (20.0-40.0) % Bureau % (Auto) 5.4 (2.0-8.0) % Eos % (Auto) 1.0 (1.0-3.0) % Baso % (Auto) 0.7 (0.0-1.0) % Neut # (Auto) 8.24 H (2.50-7.00) 10^3/uL Lymph # (Auto) 1.23 (1.00-4.00) 10^3/uL Bureau # (Auto) 0.55 (0.10-0.80) 10^3/uL Eos # (Auto) 0.10 (0.10-0.30) 10^3/uL Baso # (Auto) 0.07 (0.00-0.10) 10^3/uL Immature Gran # (Auto) 0.01 (0.00-0.50) 10^3/uL Sodium 140 (136-145) mmol/L Potassium 4.4 (3.3-5.3) mmol/L Chloride 103 (98-115) mmol/L Carbon Dioxide 26.1 (21.0-32.0) mmol/L Anion Gap 15.3 H (5-15) mmol/L BUN 18 (6-25) mg/dL Creatinine 0.96 (0.51-1.17) mg/dL Est Cr Clr Drug Dosing 93.69 mL/min Estimated GFR (MDRD) > 60 mL/min Glucose 119 H (75 - 99) mg/dL Lactic Acid 1.1 (0.4-2.0) mmol/L Calcium 9.9 (8.7-10.3) mg/dL Total Bilirubin 0.5 (0.2-1.0) mg/dL AST 23 (15-37) U/L ALT 50 (12-78) U/L Alkaline Phosphatase 123 H (46-116) IU/L Total Protein 7.3 (6.4-8.2) g/dL Albumin 4.23 (3.00-4.80) g/dL Amylase 59 (25-125) U/L Lipase 170 (73-393) U/L SARS CoV-2 RNA Rapid LINDSAY (NEGATIVE) 02/11/20 Range/Units 20:10 WBC (5.00-10.00) 10^3/uL RBC (4.50-6.00) 10^6/uL Hgb (13.0-17.0) g/dL Hct (40.0-52.0) % MCV (82.0-92.0) fL MCH (27.0-31.0) pg MCHC (32.0-36.0) g/dL RDW (11.5-14.5) % Plt Count (150-400) 10^3/uL MPV (7.4-10.4) fL Immature Gran % (Auto) (0.0-5.0) % Neut % (Auto) (50.0-70.0) % Lymph % (Auto) (20.0-40.0) % Bureau % (Auto) (2.0-8.0) % Eos % (Auto) (1.0-3.0) % Baso % (Auto) (0.0-1.0) % Neut # (Auto) (2.50-7.00) 10^3/uL Lymph # (Auto) (1.00-4.00) 10^3/uL Bureau # (Auto) (0.10-0.80) 10^3/uL Eos # (Auto) (0.10-0.30) 10^3/uL Baso # (Auto) (0.00-0.10) 10^3/uL Immature Gran # (Auto) (0.00-0.50) 10^3/uL Sodium (136-145) mmol/L Potassium (3.3-5.3) mmol/L Chloride (98-115) mmol/L Carbon Dioxide (21.0-32.0) mmol/L Anion Gap (5-15) mmol/L BUN (6-25) mg/dL Creatinine (0.51-1.17) mg/dL Est Cr Clr Drug Dosing mL/min Estimated GFR (MDRD) mL/min Glucose (75 - 99) mg/dL Lactic Acid (0.4-2.0) mmol/L Calcium (8.7-10.3) mg/dL Total Bilirubin (0.2-1.0) mg/dL AST (15-37) U/L ALT (12-78) U/L Alkaline Phosphatase (46-116) IU/L Total Protein (6.4-8.2) g/dL Albumin (3.00-4.80) g/dL Amylase (25-125) U/L Lipase (73-393) U/L SARS CoV-2 RNA Rapid LINDSAY Negative (NEGATIVE) Meds: Medications Generic Name Dose Route Start Last Admin Trade Name Freq PRN Reason Stop Dose Admin Sodium Chloride 1,000 mls @ 150 mls/hr 02/11/20 18:30 02/11/20 18:45 Normal Saline IV 150 mls/hr ASDIRECTED EDMOND Administration Sodium Chloride 10 ml 02/11/20 18:28 02/11/20 18:47 Saline Flush FLUSH 10 ml Q8HR PRN Administration keep vein open Discontinued Medications Generic Name Dose Route Start Last Admin Trade Name Freq PRN Reason Stop Dose Admin Iopamidol 100 ml 02/11/20 19:17 Isovue-370 (76%) IV 02/11/20 19:18 ONETIME ONE Ketorolac Tromethamine 30 mg 02/11/20 20:33 02/11/20 20:38 Toradol IVPUSH 02/11/20 20:34 30 mg ONETIME ONE Administration Morphine Sulfate 2 mg 02/11/20 19:29 02/11/20 19:38 Morphine IVPUSH 02/11/20 19:30 2 mg ONETIME ONE Administration Ondansetron HCl 8 mg 02/11/20 18:27 02/11/20 18:40 Zofran IVPUSH 02/11/20 18:28 8 mg ONETIME ONE Administration Departure - Departure Time of Disposition: 21:14 Disposition: Refer to Observation Condition: Fair Clinical Impression: Renal mass, right, Small bowel obstruction - Discharge Information *PRESCRIPTION DRUG MONITORING PROGRAM REVIEWED*: Not Applicable *COPY OF PRESCRIPTION DRUG MONITORING REPORT IN PATIENT SUZANNA: Not Applicable Referrals: No Dunn NP [Primary Care Provider] - Forms: ED Department Discharge Additional Instructions: admit to [facility]. Sepsis Event Note (ED) - Focused Exam Vital Signs: Vital Signs Temp Pulse Resp BP Pulse Ox 02/11/20 20:29 66 18 185/95 H 97 02/11/20 19:40 37.3 C 63 18 184/89 H 97 02/11/20 18:20 35.8 C L 66 19 195/109 H 97 ED Communication - Discussed Case With (1) Discussed Case With (1): Admitting Provider Person/s Notified (1): Alexis salazar Date: 02/11/20 Time Called: 20:10 - Conversation Summary Admitting Provider Agreed to Patient's Admission: Yes Summary Comment: Agreed to the admission pending a negative COVID 19 test result - Problem List & Annotations (1) Small bowel obstruction SNOMED Code(s): 439952603 Code(s): K56.609 - UNSP INTESTNL OBST, UNSP TO PARTIAL VERSUS COMPLETE OBST Status: Acute Priority: High Current Visit: Yes (2) Renal mass, right SNOMED Code(s): 912365555 Code(s): N28.89 - OTHER SPECIFIED DISORDERS OF KIDNEY AND URETER Status: Acute Priority: High Current Visit: Yes (3) Lab test negative for COVID-19 virus SNOMED Code(s): 109955709, 624115165 Code(s): Z03.818 - ENCNTR FOR OBS FOR SUSP EXPSR TO OTH BIOLG AGENTS RULED OUT Status: Acute Current Visit: Yes - Problem List Review Problem List Initiated/Reviewed/Updated: Yes - My Orders Last 24 Hours: My Active Orders 02/11/20 18:28 EKG Documentation Completion [RC] ASDIRECTED Peripheral IV Care [RC] . DIRECTED Sodium Chloride 0.9% [Saline Flush] 10 ml FLUSH Q8HR PRN Peripheral IV Insertion Adult [OM.PC] Routine EKG 12 Lead [EK] Urgent 02/11/20 18:30 Sodium Chloride 0.9% [Normal Saline] 1,000 ml IV ASDIRECTED - Assessment/Plan Last 24 Hours: My Active Orders 02/11/20 18:28 EKG Documentation Completion [RC] ASDIRECTED Peripheral IV Care [RC] . DIRECTED Sodium Chloride 0.9% [Saline Flush] 10 ml FLUSH Q8HR PRN Peripheral IV Insertion Adult [OM.PC] Routine EKG 12 Lead [EK] Urgent 02/11/20 18:30 Sodium Chloride 0.9% [Normal Saline] 1,000 ml IV ASDIRECTED
[2020-02-11] MEDS ORDERED: Ondansetron 4 MG/2 ML SDV IVPUSH ONE (18:27)
[2020-02-11] MEDS ORDERED: Sodium Chloride 0.9% 10 ML Syringe FLUSH PRN (18:28)
[2020-02-11] MEDS: Sodium Chloride 0.9% 1,000 ML IV SCH (18:45)
[2020-02-11 19:05] LABS: ANION GAP 15.3 mmol/L (5-15); CHLORIDE,CL 103 mmol/L (98-115); SODIUM,NA 140 mmol/L (136-145)
[2020-02-11] MEDS ORDERED: Iopamidol 755 Mg/ML 100 ML Bottle IV ONE (19:17)
[2020-02-11] MEDS ORDERED: Morphine 2 MG/ML SYRINGE IVPUSH ONE (19:29)
--- NOTE | 2020-02-11 19:47 | CT ---
[id number] CT/CT Abdomen Pelvis W IV EXAM: CT Abdomen Pelvis W IV CLINICAL DATA: ABDOMINAL PAIN COMPARISON: CORRELATION IS MADE WITH MARCH 02, 2013 FINDINGS: Small bowel obstruction is seen Report was called There is no free air There is a small amount of free fluid There is a 1 cm lower pole indeterminate renal mass. This needs follow-up The liver and spleen, kidneys and adrenals, pancreas and aorta are otherwise unremarkable The gallbladder and appendix are not seen The pelvis shows no mass or adenopathy IMPRESSION: SMALL BOWEL OBSTRUCTION INDETERMINATE RIGHT RENAL MASS. FREE FLUID Torres Rivera MD 02/11/20 1946 Thank you for allowing us to participate in the care of your patient.
--- NOTE | 2020-02-11 19:51 | CR ---
[id number] RAD/RAD Chest PA And Lateral EXAM: RAD Chest PA And Lateral CLINICAL DATA: ABDOMINAL PAIN COMPARISON: CORRELATION IS MADE WITH JUNE 10, 2017 FINDINGS: There is no free air under the diaphragm The lungs are clear The cardiac silhouette is stable There is bowel distention Surgical changes of the cervical spine are seen IMPRESSION: NO ACUTE PROCESS. Torres Rivera MD 02/11/20 1950 Thank you for allowing us to participate in the care of your patient.
[2020-02-11] MEDS ORDERED: Ketorolac 30 MG/ML SDV IVPUSH ONE (20:33)
[2020-02-11] MEDS ORDERED: Ondansetron 4 MG/2 ML SDV IVPUSH PRN (22:06)
[2020-02-11] MEDS ORDERED: Morphine 2 MG/ML SYRINGE IVPUSH PRN (22:06)
[2020-02-12] MEDS ORDERED: Terazosin 5 MG Cap PO ONE (00:53)
[2020-02-12] MEDS: Ketorolac 30 MG/ML SDV IVPUSH PRN ×3 (01:03→22:03)
[2020-02-12] MEDS: Sodium Chloride 0.9% 1,000 ML IV SCH ×4 (01:30→21:40)
[2020-02-12] MEDS ORDERED: Pantoprazole 40 MG Vial IVPUSH ONE (01:51)
[2020-02-12 07:45] LABS: ANION GAP 15.2 mmol/L (5-15); CHLORIDE,CL 107 mmol/L (98-115); SODIUM,NA 142 mmol/L (136-145)
[2020-02-12] MEDS: Carvedilol 12.5 MG Tab PO SCH ×2 (08:27→20:13)
[2020-02-12] MEDS: Losartan 50 MG Tab PO SCH (08:28)
[2020-02-12] MEDS ORDERED: Pantoprazole 40 MG Vial IVPUSH SCH (09:00)
[2020-02-12] MEDS ORDERED: Aspirin 81 MG Tab.EC PO SCH (09:00)
--- NOTE | 2020-02-12 12:26 | HP ---
HISTORY OF PRESENT ILLNESS: This 54-year-old male patient was admitted to observation from the emergency room. His ER history is indicative of epigastric and right upper quadrant pain. This developed after he had eaten [place] food on 02/10/2020. He noted some mild epigastric/ right upper quadrant pain, which progressively worsened over the next 24 hours. By the evening of 02/11/2020, he presented to the emergency room with significant pain and discomfort. He did have a CT scan completed in the ER, which was indicative of a small-bowel obstruction with an incidental finding of a renal mass. As a result, he was admitted to observation. Throughout the night he developed increased nausea and vomiting. He reports he was having emesis approximately every 15 minutes to 2 hours. He had been given IV Zofran along with IV Protonix. This did not resolve the emesis. An NG tube was placed during the night. The patient states since the time of the NG placement he has had approximately 30% improvement in his nausea. He has had no further emesis. He reports that he does get an occasional spasmodic type pain in the right upper quadrant. The pain is currently being managed with Toradol every 6-8 hours. Morphine is ineffective for pain control per patient. He states that post NG, he is resting somewhat better. He voided upon arrival to his observation room last evening. He has not voided yet this a.m. He reports a normal stool yesterday. No further stools since that time. He is passing gas this morning. The patient also states that initially after eating the [place] food he developed mild pain. The following day he did have pizza. It was after the intake of the pizza that his symptoms became more severe. PAST MEDICAL HISTORY: Includes the following problems, spinal stenosis in the cervical region, elevated LFTs, gout, depression, history of ganglionic cyst, lumbar stenosis, hypercholesterolemia, lumbar degenerative disk disease, partial tear of the left rotator cuff, angina, essential hypertension, anxiety, obesity, osteoarthritis, history of melena, history of acute blood loss, history of cervical disease with myelopathy, vitamin B12 deficiency, type 2 diabetes, and lumbar radiculopathy. PAST SOCIAL HISTORY: The patient is a nonsmoker or tobacco user, none illicit drug usage. He reports treatment for alcoholism 16 months ago and he has been alcohol free since that time. PAST SURGICAL HISTORY: History of upper GI endoscopy, colonoscopy, arthroscopy, laminectomy, discectomy, umbilical hernia repair, gastric bypass in 2010, appendectomy, cholecystectomy, and cervical spine surgery. MEDICATIONS: His current home medications include: 1. BuSpar 15 mg p.r.n. 2. Voltaren 25 mg b.i.d. 3. Baclofen 10 mg b.i.d. 4. Coreg 12.5 b.i.d. 5. Lexapro 1 tablet daily. 6. Losartan 100 mg daily. 7. Allopurinol 300 mg daily. 8. Terazosin 5 mg daily at bedtime. 9. An EpiPen for severe allergic reactions to bee stings. 10.Omeprazole 1 tablet of 40 mg daily. 11.Lipitor 10 mg daily. 12.Wellbutrin XL 150 mg daily. 13.Indomethacin 50 mg t.i.d. with gout flares. 14.Colchicine 0.6 mg p.r.n. 15.An 81 mg aspirin daily. 16.Niferex 150 daily. 17.Multivitamin daily. 18.Vitamin D 5000 units daily. 19.Cyanocobalamin 5000 mcg daily. ALLERGIES: Include codeine and bee stings. FAMILY HISTORY: Hypertension and bowel obstruction - mother, [place] - father. REVIEW OF SYSTEMS: GENERAL: The patient reports intermittent pain. He feels that his pain is managed with Toradol fairly well. Pain currently a 4 to 5 on a 0 to 10 pain scale. HEENT: No complaints of headache, earache, or sore throat. RESPIRATORY: No cough or congestion. No shortness of breath. CARDIOVASCULAR: No complaints of chest discomfort or palpitations. ABDOMEN/GI: Epigastric and right upper quadrant pain which is improving at about 30% per patient. He feels that the symptoms are improving with the insertion of the NG tube. He states he has not had a bowel movement since arriving to the floor. However, he did have a normal bowel movement yesterday. : The patient states he has not voided this morning, but did void upon arrival to the observation setting last night. MUSCULOSKELETAL: No complaints of muscle or joint pain. SKIN: No rashes, sores, or moles. NEUROLOGICAL: Negative. PHYSICAL EXAMINATION: VITAL SIGNS: 141/85, 97.8, 63 and 20. GENERAL: The patient is alert. He is oriented. He responds to questions appropriately. The patient is quite comfortable, resting in bed. HEENT: Head is normocephalic. Conjunctiva is clear. No nasal drainage. RESPIRATORY: Lung sounds are clear to auscultation in all bases. CARDIOVASCULAR: Heart rate and rhythm is regular S1, S2. No murmurs auscultated. ABDOMEN: Soft. It is nondistended. There is tenderness to light touch and palpation at the epigastric site and in the right upper quadrant. Bowel sounds are hyperactive in the left upper quadrant. Bowel sounds are noted in the lower quadrants with less activity. MUSCULOSKELETAL: Noted no lower extremity edema. Pedal pulses are palpable. Skin is warm and dry to touch. ASSESSMENT: Small-bowel obstruction with an incidental right renal mass noted on scan. Elevated liver enzymes/lipase/R/O acute pancreatitis. PLAN: Dr. Aiden Vásquez was noted within the 4-hour time frame of the patient's admission and he is in agreement with the plan of care. The patient was placed on IV fluids of normal saline at 150 mL/hour. We will continue with the following home meds at this time; Cozaar 100 mg daily, terazosin 5 mg and Coreg 12.5 mg b.i.d. We will also add Toradol 30 mg IV push q.6 hours p.r.n. and morphine sulfate 2 mg IV push q.4 hours for pain and discomfort. Zofran 8 mg IV push q.8 hours for nausea and vomiting, Protonix 40 mg IV daily. Labs from the ER along with the scan were reviewed. We did obtain a followup CBC, CMP, lipase and amylase, uric acid this morning. Significant elevations in the liver enzymes and the lipase were noted. Consulted with Dr. Aiden Vásquez in regard to the plan of care for this patient. Continue the IV fluids at 150 mL/hour. Residual NG drainage will be evaluated two times per shift today. If less than 100 mL, the NG will be discontinued. The patient will remain NPO and be started on a few ice chips throughout the day. Assessment for flatus/stool/urine output. We will continue with IV Toradol for pain management. This will be re-evaluated tomorrow for consideration of an alternative medication if needed. Patient reports MS ineffective. We will obtain lab work tomorrow morning to include a CBC, lipase, and CMP. Renal mass follow up when current symptoms managed. /[id number]/MODL MTDD
[2020-02-12] MEDS: Terazosin 5 MG Cap PO SCH (20:13)
[2020-02-12] MEDS: Pantoprazole 40 MG Vial IVPUSH SCH (20:15)
[2020-02-13] MEDS: Sodium Chloride 0.9% 1,000 ML IV SCH (04:42)
[2020-02-13] MEDS: Ketorolac 30 MG/ML SDV IVPUSH PRN (06:21)
[2020-02-13] MEDS ORDERED: Iopamidol 755 Mg/ML 100 ML Bottle IV ONE (07:47)
[2020-02-13] MEDS ORDERED: Sodium Chloride 0.9% 50 ML IV SCH (08:00)
[2020-02-13 08:15] LABS: ANION GAP 17.3 mmol/L (5-15); CHLORIDE,CL 108 mmol/L (98-115); SODIUM,NA 147 mmol/L (136-145)
[2020-02-13] MEDS: Losartan 50 MG Tab PO SCH (09:12)
[2020-02-13] MEDS: Carvedilol 12.5 MG Tab PO SCH ×2 (09:12→20:51)
[2020-02-13] MEDS ORDERED: Sodium Chloride 0.9% 1,000 ML IV SCH (10:15)
--- NOTE | 2020-02-13 11:29 | PN ---
02/13/2020 PATIENT NAME: JO ARCEO BRIEF HISTORY: This 54-year-old gentleman was admitted to the observation initially and then switched to inpatient. Yesterday, on 02/12/2020, he had came to the ED and it was determined for him to have a small-bowel obstruction. He was admitted for IV fluids and medical management. At that time, he had complained about some abdominal pain, abdominal distention. He had eaten some [place] food on February 09. DIAGNOSTICS: CT showed small-bowel obstruction with an incidental finding of a renal mass. NG was placed. Pain medication was given. He was made n.p.o. with aggressive IV fluids. HOSPITAL COURSE TO DATE: This morning on rounds, he is sitting in high-Gonsalez, NG tube. No output. Feels much better. Abdominal pain is down to a 3/10. No fever. No vomiting. He is more hungry. He has been passing quite a bit of gas. No more abdominal rigidness or distention. IV fluids remain with isotonic saline at 150 mL hours. VITAL SIGNS: Blood pressure 181/90, does have a sodium of 147. Nurses reported this was prior to oral blood pressure medicines were given, BP meds were given with the NG tube clamped. Temperature 97.5, T-max on this hospitalization 99.2 greater than 24 hours ago. LABORATORY DATA: White count initially was 10.0, now 3.80. Neutrophilia was high on admission at 81%, down to 49%. Sodium 147, potassium 4.1, anion gap slightly elevated at 17.3, BUN 16, creatinine 0.92. His initial lactate was normal. Glucose 90, calcium 8.1. ALT much improved at 88, alkaline phosphatase much improved at 112, amylase actually 2.93 which is low, lipase is now normal at 135. REVIEW OF SYSTEMS: GENERAL: The patient is sitting upright. No acute distress. RESPIRATORY: No cough or congestion. No shortness of breath. CARDIOVASCULAR: No chest pains or discomfort, however, does have some edema in his upper extremities. ABDOMINAL: Decreased bowel tones, however, NG tube had been running. Soft, nondistended. No guarding. Unable to palpate liver borders. PHYSICAL EXAMINATION: VITAL SIGNS: 181/90, temperature is 97.5. CV: Regular rate and rhythm. No S3. RESPIRATORY: Lungs are clear to auscultation. PRIMARY HOSPITAL PROBLEMS: 1. Small-bowel obstruction, improving; elevated transaminases, markedly improving; hypertension; renal mass, less than 1 cm, likely benign, however, outpatient urology consult will be required. 2. Hypernatremia, mild, with some mild peripheral edema, hypertension, likely mild free water deficit. 3. History of gastric bypass. He is on vitamin B12 deficiencies that he has bypass clips in. 4. Chronic, but stable conditions, degenerative disk disease. Does have appointment with [facility] this week for followup of spinal surgery. 5. Hyperlipidemia. 6. History of lumbar stenosis. 7. Anxiety. 8. History of alcoholism. 9. Obesity. 10.Type 2 diabetes. DISPOSITION AND OVERALL PLAN: Continue with inpatient status. Meets qualification. Discontinue NG tube. Have the patient walk aggressively on the floors today. Monitor and assess pain levels. Advance the diet to clear liquids. He can have water. UA to assess for hematuria. Decrease IV fluids. /[id number]/MODL
[2020-02-13] MEDS ORDERED: Furosemide 40 MG/4 ML VIAL IVPUSH ONE (12:32)
[2020-02-13] MEDS ORDERED: amLODIPine 5 MG Tab PO ONE (12:33)
[2020-02-13] MEDS: Pantoprazole 40 MG Vial IVPUSH SCH (20:49)
[2020-02-13] MEDS: Terazosin 5 MG Cap PO SCH (20:51)
[2020-02-14 07:45] LABS: ANION GAP 8.9 mmol/L (5-15); CHLORIDE,CL 107 mmol/L (98-115); SODIUM,NA 140 mmol/L (136-145)
[2020-02-14] MEDS: Carvedilol 12.5 MG Tab PO SCH (08:29)
[2020-02-14] MEDS: Losartan 50 MG Tab PO SCH (08:29)
--- NOTE | 2020-02-14 09:35 | PCM.DCSUM1 ---
Discharge Summary - Hospital Course Diagnosis: Stroke: No - Discharge Data Discharge Date: 02/14/20 Discharge Disposition: Home, Self-Care 01 Condition: Good - Referral to Home Health Primary Care Physician: No Dunn NP - Patient Instructions Diet: Regular Diet as Tolerated, Drink 8-10+ Glasses/Day Driving: May Drive Today Showering/Bathing: May Shower Notify Provider of: Fever, Increased Pain, Nausea and/or Vomiting - Discharge Plan *PRESCRIPTION DRUG MONITORING PROGRAM REVIEWED*: Not Applicable *COPY OF PRESCRIPTION DRUG MONITORING REPORT IN PATIENT SUZANNA: Not Applicable Home Medications: Home Meds Losartan [Cozaar] 100 mg PO DAILY 06/10/17 [History] allopurinoL [Zyloprim] 300 mg PO DAILY 06/10/17 [History] Escitalopram Oxalate 20 mg PO DAILY 06/11/17 [History] atorvaSTATin Calcium [Atorvastatin Calcium] 10 mg PO DAILY 06/11/17 [History] Cholecalciferol (Vitamin D3) [Vitamin D3] 5,000 unit PO DAILY 08/09/18 [History] Omeprazole 40 mg PO DAILY 08/09/18 [History] Cyanocobalamin (Vitamin B-12) [Vitamin B-12] 5,000 mcg SL DAILY 12/06/18 [History] EPINEPHrine [Epipen] 0.3 mg INJECT ASDIRECTED PRN 12/06/18 [History] Iron Polysaccharide Complex [Poly-Iron] 150 cap PO DAILY 12/06/18 [History] Terazosin HCl [Terazosin] 5 mg PO BEDTIME 12/22/18 [History] buPROPion HCL [Wellbutrin SR] 150 mg PO DAILY 12/22/18 [History] Indomethacin 50 mg PO TID PRN 03/30/19 [History] carvediloL [Carvedilol] 12.5 mg PO BID 03/30/19 [History] Diclofenac Sodium [Voltaren] 25 mg PO BID 07/27/19 [History] Aspirin [Aspirin EC] 81 mg PO DAILY 02/11/20 [History] Baclofen 10 mg PO BID 02/11/20 [History] Colchicine 2 tab PO ASDIRECTED PRN 02/11/20 [History] Multivitamin with Minerals [Multivitamins with Minerals] 1 tab PO DAILY 02/11/20 [History] busPIRone [Buspar] 15 mg PO BEDTIME PRN 02/11/20 [History] Forms: ED Department Discharge Referrals: No Dunn NP [Primary Care Provider] - - Discharge Summary/Plan Comment DC Time >30 min.: No Discharge Summary/Plan Comment: Final diagnosis, primary --Small bowel obstruction, resolved --Renal mass, <1cm, likely benign, negative hematuria urology consult placed --Pancreatitis, resolved --Hypernatremia, resolved after free water input --Pancreatitis, history EtOH abuse, resolved --Elevated transaminase, much improved, near baseline --History of gastric bypass with clips Pertinent ED diagnostic/findings Abdominal CT, small bowel obstruction, incidental finding of renal mass Normal white count, mild neutrophilia, afebrile Elevated lipase and elevated liver transaminases COVID-19 NEG CODE STATUS, full code Observation 02/10-02/11 Inpatient, 02/11 through 02/13 DOD 02/13 History summary Butch is a 54-year-old obese gentleman that was admitted in to [facility] due to small bowel obstruction. He was initially admitted into observation status on February 11 when he came to the ED complaining of nausea, predominant upper and right abdominal pain including epigastric region slightly radiating towards his back after eating [place] food on February 09. Hospital course, The evening of admission the patient did require an nasogastric tube along with IV Protonix due to abdominal distention and emesis which improved his symptoms approximate 30%. He had no further emesis however he did get an occasional spasmodic type of pain in his right upper quadrant seemed to be managed well with ketorolac. Prokinetics agents were avoided and he started passing gas the next morning. He did have elevated lipase which normalized after decompression and nothing by mouth status. His diet was advanced to clears and then softs which he tolerated well. Amylase was normal. A normal white count admission however did have mild neutrophils which normalized. Renal indices were monitored carefully and remained within normal limits. There was a incidental renal mass was noted less than 1 cm however on abdominal CT however no hematuria. He was given aggressive IV fluids and over time he did sustain some peripheral edema along with subsequent elevated blood pressure well above his baseline--20 mg of Lasix was given and fluids were stopped--greatly improved his output and his peripheral edema and his blood pressure normalized with low-dose Norvasc. He ambulated floor aggressively there was no hemodynamic compromise. His abdominal pain and abdominal distention resolved, no liver borders were palpable. Intake, total, 7960 ML's output, urine; 10,000 ML's, NG 160ml Medication changes/adjustments upon discharge [id number] stool softener 1 tablet by mouth daily Continue all regular home medications Referrals urology appointment, submitted through [facility] Disposition Patient will be discharged from inpatient status from [facility] on this date after 1300. All labs x-rayys x-rays, other diagnostics were independently reviewed by myself and the patient is deemed ready for discharge. He will follow-up with his PCP No Low. He was given specific written instructions regarding reporting increase in abdominal pain and abdominal distention increasing fiber in diet - Review of Systems General: Reports: No Symptoms HEENT: Reports: No Symptoms Pulmonary: Reports: No Symptoms Cardiovascular: Reports: No Symptoms Gastrointestinal: Reports: Flatus. Denies: Abdominal Pain, Constipation, Decreased Appetite, Diarrhea, Nausea Genitourinary: Denies: Hematuria Musculoskeletal: Reports: Back Pain Skin: Reports: No Symptoms Neurological: Reports: No Symptoms Psychiatric: Reports: No Symptoms - Patient Data Vitals - Most Recent: Last Vital Signs Temp 97.7 F 02/14/20 06:49 Pulse 88 02/14/20 08:29 Resp 16 02/14/20 06:49 BP 150/80 H 02/14/20 08:29 Pulse Ox 97 02/14/20 06:49 Weight - Most Recent: 254 lb I&O - Last 24 hours: Intake & Output 02/13/20 02/14/20 02/14/20 22:59 06:59 14:59 Intake Total 1740 300 Output Total 5000 1600 Balance -3260 -1300 Lab Results - Last 24 hrs: Laboratory Results - last 24 hr 02/13/20 02/14/20 Range/Units 11:10 07:12 Sodium 140 (136-145) mmol/L Potassium 3.6 (3.3-5.3) mmol/L Chloride 107 (98-115) mmol/L Carbon Dioxide 27.7 (21.0-32.0) mmol/L Anion Gap 8.9 (5-15) mmol/L BUN 10 (6-25) mg/dL Creatinine 0.88 (0.51-1.17) mg/dL Est Cr Clr Drug Dosing 102.21 mL/min Estimated GFR (MDRD) > 60 mL/min Glucose 91 (75 - 99) mg/dL Calcium 8.6 L (8.7-10.3) mg/dL Total Bilirubin 0.7 (0.2-1.0) mg/dL AST 25 (15-37) U/L ALT 68 (12-78) U/L Alkaline Phosphatase 118 H (46-116) IU/L Total Protein 5.9 L (6.4-8.2) g/dL Albumin 3.27 (3.00-4.80) g/dL Specimen Type Urinvoid Urine Color Yellow (YELLOW) Urine Appearance Clear (CLEAR) Urine pH 6.0 (5.0-9.0) Ur Specific [place] 1.025 (1.005-1.030) Urine Protein Negative (NEGATIVE) mg/dL Urine Glucose (UA) Negative (NEGATIVE) mg/dL Urine Ketones Negative (NEGATIVE) mg/dL Urine Occult Blood Negative (NEGATIVE) Urine Nitrite Negative (NEGATIVE) Urine Bilirubin Negative (NEGATIVE) Urine Urobilinogen 1.0 (0.2-1.0) E.U./dL Ur Leukocyte Esterase Negative (NEGATIVE) Med Orders - Current: Current Medications Carvedilol (Coreg) 12.5 mg PO BID [facility] Last Admin: 02/14/20 08:29 Dose: 12.5 mg Documented by: Ketorolac Tromethamine (Toradol) 30 mg IVPUSH Q6H PRN PRN Reason: Pain Stop: 02/16/20 22:05 Last Admin: 02/13/20 06:21 Dose: 30 mg Documented by: Losartan Potassium (Cozaar) 100 mg PO DAILY [facility] Last Admin: 02/14/20 08:29 Dose: 100 mg Documented by: Morphine Sulfate (Morphine) 2 mg IVPUSH Q4H PRN PRN Reason: Pain Last Admin: 02/11/20 23:10 Dose: 2 mg Documented by: Ondansetron HCl (Zofran) 8 mg IVPUSH Q8H PRN PRN Reason: Nausea/Vomiting Last Admin: 02/12/20 01:13 Dose: 8 mg Documented by: Pantoprazole Sodium (Protonix Iv) 40 mg IVPUSH DAILY@2100 [facility] Last Admin: 02/13/20 20:49 Dose: 40 mg Documented by: Sodium Chloride (Saline Flush) 10 ml FLUSH Q8HR PRN PRN Reason: keep vein open Last Admin: 02/11/20 18:47 Dose: 10 ml Documented by: Terazosin HCl (Hytrin) 5 mg PO BEDTIME [facility] Last Admin: 02/13/20 20:51 Dose: 5 mg Documented by: Discontinued Medications Amlodipine Besylate (Norvasc) 5 mg PO ONETIME ONE Stop: 02/13/20 12:34 Last Admin: 02/13/20 13:06 Dose: 5 mg Documented by: Aspirin (Halfprin) 81 mg PO DAILY [facility] Furosemide (Lasix) 20 mg IVPUSH NOW ONE Stop: 02/13/20 12:33 Last Admin: 02/13/20 13:06 Dose: 20 mg Documented by: Sodium Chloride (Normal Saline) 1,000 mls @ 150 mls/hr IV ASDIRECTED [facility] Last Admin: 02/13/20 04:42 Dose: 150 mls/hr Documented by: Sodium Chloride (Normal Saline) 50 mls @ 200 mls/min IV ASDIRECTED [facility] Last Admin: 02/11/20 19:45 Dose: 200 mls/min Documented by: Sodium Chloride (Normal Saline) 1,000 mls @ 75 mls/hr IV ASDIRECTED [facility] Last Admin: 02/13/20 12:08 Dose: 75 mls/hr Documented by: Iopamidol (Isovue-370 (76%)) 100 ml IV ONETIME ONE Stop: 02/11/20 19:18 Last Admin: 02/12/20 19:47 Dose: 100 ml Documented by: Iopamidol (Isovue-370 (76%)) 100 ml IV ONETIME ONE Stop: 02/13/20 07:48 Last Admin: 02/11/20 18:45 Dose: 100 ml Documented by: Ketorolac Tromethamine (Toradol) 30 mg IVPUSH ONETIME ONE Stop: 02/11/20 20:34 Last Admin: 02/11/20 20:38 Dose: 30 mg Documented by: Morphine Sulfate (Morphine) 2 mg IVPUSH ONETIME ONE Stop: 02/11/20 19:30 Last Admin: 02/11/20 19:38 Dose: 2 mg Documented by: Ondansetron HCl (Zofran) 8 mg IVPUSH ONETIME ONE Stop: 02/11/20 18:28 Last Admin: 02/11/20 18:40 Dose: 8 mg Documented by: Pantoprazole Sodium (Protonix Iv) 40 mg IVPUSH DAILY [facility] Pantoprazole Sodium (Protonix Iv) 40 mg IVPUSH ONETIME ONE Stop: 02/12/20 01:52 Last Admin: 02/12/20 02:04 Dose: 40 mg Documented by: Terazosin HCl (Hytrin) 5 mg PO NOW ONE Stop: 02/12/20 00:54 Last Admin: 02/12/20 01:30 Dose: 5 mg Documented by: - Exam Quality Assessment: Denies: Supplemental Oxygen General: Reports: Alert, Oriented Neck: Reports: Supple Lungs: Reports: Clear to Auscultation, Normal Respiratory Effort Cardiovascular: Reports: Regular Rate, Regular Rhythm GI/Abdominal Exam: Normal Bowel Sounds, Soft, Non-Tender, No Organomegaly, No Distention, No Abnormal Bruit, No Mass. No: Hepatomegaly (Male) Exam: Deferred Extremities: No Pedal Edema Skin: Reports: Warm, Dry, Intact Psy/Mental Status: Reports: Alert, Normal Affect, Normal Mood
== END 2020-02-14 13:45 | disposition home or self-care (01) | DRG 247 ==
LOC: KA.ED 18:10 → KA.MS 20:57 → OBSVTOIN 02-12 11:20
PROVIDERS: ADMIT Nurse Practitioner; ATTEND Physician Assistant Medical
DX: K56.609 Unspecified intestinal obstruction, unspecified as to partial versus complete obstruction (principal); K85.90 Acute pancreatitis without necrosis or infection, unspecified; N28.89 Other specified disorders of kidney and ureter; E87.0 Hyperosmolality and hypernatremia; E78.00 Pure hypercholesterolemia, unspecified; I10 Essential (primary) hypertension; E66.9 Obesity, unspecified; M19.90 Unspecified osteoarthritis, unspecified site; E11.9 Type 2 diabetes mellitus without complications; Z20.828 Contact with and (suspected) exposure to other viral communicable diseases; E53.8 Deficiency of other specified B group vitamins; F41.0 Panic disorder [episodic paroxysmal anxiety]; F32.9 Major depressive disorder, single episode, unspecified; Z90.49 Acquired absence of other specified parts of digestive tract; Z79.899 Other long term (current) drug therapy; Z88.5 Allergy status to narcotic agent; Z79.82 Long term (current) use of aspirin; Z91.030 Bee allergy status; Z68.35 Body mass index [BMI] 35.0-35.9, adult
CPT/HCPCS: 36415; 71046; 74177; 80053; 81003; 82150; 83605; 83690; 84550; 85025; 93005; 96361; 96374; 96375; 96376; 99284; 99285-25; A9270-GY; C9113; G0378; J1885; J1940; J2270; J2405; J7030; J7050; Q9967; U0002

== ENCOUNTER 2020-05-28 14:20 | Emergency (ER) | payer BC ==
--- NOTE | 2020-05-28 15:25 | EDM.PDOC ---
ED HPI GENERAL MEDICAL PROBLEM - General Chief Complaint: Back Pain or Injury Stated Complaint: BACK/HIP PAIN Time Seen by Provider: 05/28/20 14:48 Source of Information: Reports: Patient History Limitations: Reports: No Limitations - History of Present Illness INITIAL COMMENTS - FREE TEXT/NARRATIVE: Patient presents with pain in the low/right back and down the right leg. He r ates it at 9.5 for the past 5 days. He denies any new or worsening numbness or weakness. He denies any injury but has had chronic pain in this area for several months due to DDD. He has had a laminectomy in L4 and a "cage" in cervical spine. He gets injections every 4-6 weeks which only seem to help a couple days but the doctor ([facility] in [place]) is trying different locations and says sometimes it takes 3-4 injections to achieve successful pain control. He missed the last injection in March but is scheduled for 06/12. He had part of his right kidney removed due to cancer a few months ago. He uses Diclofenac 20 mg bid and Baclofen regularly. He has tried Celebrex, Gabapentin, Lyrica, Flexeril but they don't work for him. He has some Oxycodone left over from his neck surgery but hasn't tried them because he really doesn't want to use narcotics. He has been told not to use any NSAIDS other than the current regimen regularly. His PCP is No at [facility]. lower back Pain Score (Numeric/FACES): 9 - Related Data Allergies Allergy/AdvReac Type Severity Reaction Status Date / Time bee venom protein (honey bee) Allergy Anaphylactic Verified 05/28/20 14:30 Shock codeine Allergy Anxiety Verified 05/28/20 14:30 Home Meds: Home Meds Losartan [Cozaar] 100 mg PO DAILY 06/10/17 [History] allopurinoL [Zyloprim] 300 mg PO DAILY 06/10/17 [History] Escitalopram Oxalate 20 mg PO DAILY 06/11/17 [History] atorvaSTATin Calcium [Atorvastatin Calcium] 10 mg PO DAILY 06/11/17 [History] Cholecalciferol (Vitamin D3) [Vitamin D3] 5,000 unit PO DAILY 08/09/18 [History] Omeprazole 40 mg PO DAILY 08/09/18 [History] EPINEPHrine [Epipen] 0.3 mg INJECT ASDIRECTED PRN 12/06/18 [History] Iron Polysaccharide Complex [Poly-Iron] 150 cap PO DAILY 12/06/18 [History] Terazosin HCl [Terazosin] 5 mg PO BEDTIME 12/22/18 [History] Indomethacin 50 mg PO TID PRN 03/30/19 [History] carvediloL [Carvedilol] 12.5 mg PO BID 03/30/19 [History] Diclofenac Sodium [Voltaren] 25 mg PO BID 07/27/19 [History] Aspirin [Aspirin EC] 81 mg PO DAILY 02/11/20 [History] Baclofen 10 mg PO TID 02/11/20 [History] Multivitamin with Minerals [Multivitamins with Minerals] 1 tab PO DAILY 02/11/20 [History] busPIRone [Buspar] 15 mg PO BEDTIME PRN 02/11/20 [History] Calcium Carbonate [Calcium] 600 mg PO DAILY 05/28/20 [History] Cyanocobalamin (Vitamin B12) [Cyanocobalamin] 1,000 mcg IM ASDIRECTED 05/28/20 [History] Past Medical History HEENT History: Reports: None, Impaired Vision Other HEENT History: glasses Cardiovascular History: Reports: High Cholesterol, Hypertension, Other (See Below) Other Cardiovascular History: Know right bundle branch block (2016) Respiratory History: Reports: None Gastrointestinal History: Reports: Bowel Obstruction Genitourinary History: Reports: None Musculoskeletal History: Reports: Arthritis, Back Pain, Chronic, Gout, Other (See Below) Other Musculoskeletal History: L shoulder Neurological History: Reports: None Psychiatric History: Reports: Anxiety, Depression, Mood Swings, Panic Attack Endocrine/Metabolic History: Reports: Obesity/BMI 30+, Vitamin D Deficiency Hematologic History: Reports: None, B12 Deficiency, Iron Deficiency Immunologic History: Reports: None Oncologic (Cancer) History: Reports: None Dermatologic History: Reports: None - Infectious Disease History Infectious Disease History: Reports: None - Past Surgical History Head Surgeries/Procedures: Reports: None HEENT Surgical History: Reports: None Other HEENT Surgeries/Procedures: neck surgery done on february 2019 with cage, plate, screws Cardiovascular Surgical History: Reports: None GI Surgical History: Reports: Appendectomy, Bariatric Procedure, Colonoscopy, Hernia, Abdominal, Other (See Below) Other GI Surgeries/Procedures: gastric bypass 2011 Male Surgical History: Reports: Circumcision, Nephrectomy, Other (See Below) Other Male Surgeries/Procedures: partial right nephrectomy March 2020 Neurological Surgical History: Reports: C-Spine, Other (See Below) Other Neurological Surgeries/Procedures: metal cage in neck Musculoskeletal Surgical History: Reports: Other (See Below) Other Musculoskeletal Surgeries/Procedures:: L rotator cuff repaid 01/22/2017 laparoscopic. neck surgery for C5 and C 6 with plate and 2 screws. L4 laminctomy Social & Family History - Family History Family Medical History: No Pertinent Family History HEENT: Reports: None Cardiac: Reports: Hypertension, [place] Other Cardiac Family History: mother also with hypertension, diabetes, macular degeneration along with cataract Respiratory: Reports: None GI: Reports: None : Reports: None OBGYN: Reports: None Musculoskeletal: Reports: None Neurological: Reports: None Psychiatric: Reports: None Endocrine/Metabolic: Reports: None Hematologic: Reports: None Immunologic: Reports: None Dermatologic: Reports: None Oncologic: Reports: None - Tobacco Use Tobacco Use Status *Q: Never Tobacco User - Caffeine Use Caffeine Use: Reports: Soda Other Caffeine Use: 2 diet mountain dew per day - Recreational Drug Use Recreational Drug Use: No ED ROS GENERAL - Review of Systems Review Of Systems: See Below Constitutional: Denies: Fever, Malaise, Weakness HEENT: Denies: Ear Pain, Throat Pain, Vision Change Respiratory: Denies: Shortness of Breath, Cough Cardiovascular: Denies: Chest Pain, Syncope GI/Abdominal: Denies: Abdominal Pain, Constipation, Diarrhea, Vomiting Musculoskeletal: Reports: Back Pain, Leg Pain. Denies: Neck Pain, Shoulder Pain, Arm Pain Skin: Denies: Cyanosis, Jaundice, Mottled, Pallor, Diaphoresis Neurological: Denies: Confusion, Dizziness, Headache, Seizure, Syncope, Trouble Speaking, Difficulty Walking (he walks okay but very painful after sitting awhile) Psychiatric: Denies: Agitation, Anxiety, Confusion ED EXAM,LOWER BACK PAIN/INJURY - Physical Exam Exam: See Below Exam Limited By: No Limitations General Appearance: Alert, WD/WN, No Apparent Distress Eye Exam: Bilateral Eye: EOMI, Normal Inspection, PERRL Ears: Normal External Exam, Hearing Grossly Normal Nose: Normal Inspection, No Blood Throat/Mouth: Normal Inspection, Normal Lips, Normal Voice, No Airway Compromise Head: Atraumatic, Normocephalic Neck: Normal Inspection, Supple, Non-Tender, Full Range of Motion (WNL) Respiratory/Chest: No Respiratory Distress, Lungs Clear, Normal Breath Sounds, No Accessory Muscle Use Cardiovascular: Regular Rate, Rhythm, No Murmur GI/Abdominal: Normal Bowel Sounds, Soft Back Exam: Other (There is just a mild to moderate general tenderness to palpation in low back from midline to right IC. No appreciable muscle spasm.) Extremities: Normal Inspection Neurological: Alert, Normal Mood/Affect, Normal Dorsiflexion, Normal Plantar Flexion, Oriented x 3 Psychiatric: Normal Affect, Normal Mood Skin Exam: Warm, Dry, Intact, Normal Color, No Rash Course - Vital Signs Last Recorded V/S: Last Vital Signs Temp 97.4 F 05/28/20 14:26 Pulse 63 05/28/20 14:26 Resp 18 05/28/20 14:26 BP 175/100 H 05/28/20 14:26 Pulse Ox 98 05/28/20 14:26 - Orders/Labs/Meds Meds: Medications Discontinued Medications Generic Name Dose Route Start Last Admin Trade Name Ramos PRN Reason Stop Dose Admin Ketorolac Tromethamine 60 mg 05/28/20 15:14 Toradol IM 05/28/20 15:15 ONETIME ONE - Re-Assessments/Exams Free Text/Narrative Re-Assessment/Exam: 05/28/20 15:34 I discussed findings and the limited treatment options available. Then I discussed case with his PCP, No Dunn NP who was familiar with his medical and surgical history. She reviewed his latest labs and advised Toradol 60 mg IM and follow up with her in a few days to recheck back and kidney function. Discussed this plan with patient who agrees. He also requests a release from work until his follow up if I feel appropriate. Patient discharged to home in stable condition. Departure - Departure Time of Disposition: 15:32 Disposition: Home, Self-Care 01 Condition: Good Clinical Impression: Acute exacerbation of chronic low back pain - Discharge Information Referrals: No Dunn NP [Primary Care Provider] - Additional Instructions: Continue your regular medications. Drink 8 cups of water daily. Tomorrow, call your PCP to make a follow up visit later this week for recheck of back pain and kidney function as we discussed. Make sure you do some walking each day. Sepsis Event Note (ED) - Evaluation Sepsis Screening Result: No Definite Risk - Focused Exam Vital Signs: Vital Signs Temp Pulse Resp BP Pulse Ox 05/28/20 14:26 97.4 F 63 18 175/100 H 98
[2020-05-28] MEDS: Ketorolac 60 MG/2 ML SDV IM ONE (15:33)
== END 2020-05-28 15:50 | disposition home or self-care (01) ==
LOC: KA.ED 14:20
DX: M54.5 Low back pain (principal); G89.29 Other chronic pain; E78.00 Pure hypercholesterolemia, unspecified; I10 Essential (primary) hypertension; M10.9 Gout, unspecified; F41.9 Anxiety disorder, unspecified; F32.9 Major depressive disorder, single episode, unspecified; E66.9 Obesity, unspecified; Z68.36 Body mass index [BMI] 36.0-36.9, adult; Z91.030 Bee allergy status; Z88.5 Allergy status to narcotic agent; D50.9 Iron deficiency anemia, unspecified; Z79.82 Long term (current) use of aspirin; Z79.899 Other long term (current) drug therapy
CPT/HCPCS: 96372; 99283; 99284; J1885

== ENCOUNTER 2025-02-17 09:25 | Inpatient (IN) | payer BC, MEDICARE ==
[2025-02-17] MEDS ORDERED: Magnesium Hydroxide 400 MG/5 ML Susp 30 ML Cup PO PRN (13:47)
[2025-02-18] MEDS: Omeprazole 20 MG Cap.CR PO SCH (06:31)
[2025-02-21] MEDS: oxyCODONE ER 10 MG TAB.ER PO SCH ×2 (10:37→10:52)
[2025-02-23] MEDS: Acetaminophen 650 MG Tab.ER PO SCH (16:24)
[2025-02-24] MEDS: Acetaminophen/HYDROcodone 325-5 MG Tab PO PRN (12:14)
[2025-02-26] MEDS: Acetaminophen 650 MG Tab.ER PO PRN (16:45)
[2025-02-26] MEDS: Ondansetron 4 MG Tab.DIS PO PRN (18:42)
== END 2025-03-03 11:11 | disposition home or self-care (01) | DRG 948 ==
LOC: KA.MS 13:13
PROVIDERS: ADMIT Internal Medicine; ATTEND Internal Medicine
DX: R53.81 Other malaise (principal); E78.5 Hyperlipidemia, unspecified; I10 Essential (primary) hypertension; M48.061 Spinal stenosis, lumbar region without neurogenic claudication; E78.00 Pure hypercholesterolemia, unspecified; G47.30 Sleep apnea, unspecified; M10.9 Gout, unspecified; M19.90 Unspecified osteoarthritis, unspecified site; F41.9 Anxiety disorder, unspecified; F32.A Depression, unspecified; M51.16 Intervertebral disc disorders with radiculopathy, lumbar region; E66.9 Obesity, unspecified; E55.9 Vitamin D deficiency, unspecified; E53.8 Deficiency of other specified B group vitamins; E61.1 Iron deficiency; H54.7 Unspecified visual loss; Z98.890 Other specified postprocedural states; Z90.49 Acquired absence of other specified parts of digestive tract; Z88.8 Allergy status to other drugs, medicaments and biological substances; Z79.899 Other long term (current) drug therapy; Z86.16 Personal history of COVID-19; Z68.31 Body mass index [BMI] 31.0-31.9, adult; Z79.82 Long term (current) use of aspirin
CPT/HCPCS: 97110-GP; 97116-GP; 97161-GP; 97166-GO; 97530-GO; 97535-GO; 99306-GT; 99307-GT; 99315-GT; A6212; A9270-GY; J1650; Q3014